=== PATIENT | male | born 1960 | race Caucasian/White ===

== ENCOUNTER 2020-08-07 17:59 | Inpatient (IN) | payer BC, OTHER, SELFPAY ==
[2020-08-07] VITALS (8 sets, daily range): BP systolic 112–130; BP diastolic 72–87; PULSE 76–98; RESP 18–33; TEMP 37.3; O2SAT 91–93; BMI 29.8
--- NOTE | 2020-08-07 18:32 | XRR_ITS ---
PROCEDURE INFORMATION: Exam: XR Chest Exam date and time: 08/07/2020 6:32 PM Age: 59 years old Clinical indication: Shortness of breath; Additional info: SOB, hypoxia, covid+ TECHNIQUE: Imaging protocol: XR of the chest. Views: 1 view. COMPARISON: No relevant prior studies available. FINDINGS: Lungs: Asymmetric patchy ground-glass opacities involving the left lower lobe. No consolidation on the right. Pleural spaces: Unremarkable. No pleural effusion. No pneumothorax. Heart/Mediastinum: Unremarkable. No cardiomegaly. Bones/joints: Unremarkable. XR/XR chest 1V portable [id number] IMPRESSION: Asymmetric left lower lobe patchy ground-glass opacities consistent with nonspecific pneumonia.
[2020-08-07 18:40] LABS: Basophils % 0.5 %; Hematocrit 44.1 % (42.0-52.0); Hemoglobin 14.9 g/dL (11.7-16.6); Lymphocytes # 0.9 10^3/uL (0.8-4.8); Lymphocytes % 22.1 %; Mean Corpuscular HGB Conc 33.8 g/dL (30.0-36.0); Mean Corpuscular Hemoglobin 30.8 pg (28.0-34.0); Mean Corpuscular Volume 91.3 fL (80-94); Mean Platelet Volume 9.2 fL (7.4-10.4); Monocytes # 0.3 10^3/uL (0.2-0.9); Monocytes % 7.5 %; Neutrophils # 2.79 10^3/uL (1.8-7.7); Neutrophils % 69.4 %; Nucleated Red Blood Cells % 0 %; Platelet Count 173 10^3/cmm (130-400); Red Blood Count 4.83 10^6/uL (4.1-5.3); Red Cell Distribution Width 12.5 % (12.1-15.1)
[2020-08-07 18:47] LABS: Fibrinogen 489 mg/dL (174-498)
[2020-08-07 18:49] LABS: D Dimer 0.96 ug/mIFEU (0-0.59)
[2020-08-07 18:53] LABS: Lactic Sepsis W/Reflex 1.1 mmol/L (0.5-2.2)
[2020-08-07 18:54] LABS: Alanine Aminotransferase 82 U/L (0-41); Albumin Level 3.6 g/dL (3.5-5.2); Alkaline Phosphatase 58 IU/L (40-130); Anion Gap 13.7 (5-19); Aspartate Amino Transferase 77 U/L (0-40); Blood Urea Nitrogen 10 mg/dL (6-20); Calcium 8.1 mg/dL (8.5-10.5); Carbon Dioxide 25 mmol/L (22-29); Chloride 100 mmol/L (98-107); Globulin 2.7 g/dL (1.3-4.6); Glomerular Filtration Rate 115.4 mL/min (90-130); Glucose 128 mg/dL (65-115); Osmolality Calculated 281 mOsm/kg (285-295); Potassium 3.7 mmol/L (3.5-5.1); Sodium 135 mmol/L (136-145); Total Bilirubin 0.2 mg/dL (0.15-1.2); Total Protein 6.3 g/dL (6.6-8.7)
[2020-08-07 18:57] LABS: ABG PCO2 32.1 mmHg (35-45); ABG PH Result 7.49 (7.35-7.45); Base Excess ABG 2.1 mmol/L (-2.0-2.0); Blood Gas Allen Test Pos; Blood Gas Operator Identificat ED; Blood Gas Sample Site Radial, right; Blood Gas Sample Type Arterial; HCO3 ABG 24.7 mmol/L (22-26); Oxygen Device NC; PO2 ABG 58.5 mmHg (80.0-100.0)
[2020-08-07 19:00] LABS: Procalcitonin 0.12 ng/mL (0-0.5)
[2020-08-07 19:12] LABS: Ferritin 1991 ng/mL (30-400)
--- NOTE | 2020-08-07 19:29 | P.HP_ITS ---
Providers/Chief Complaint Chief Complaint: COVID +; RESP DISTRESS History of Present Illness Huber Licona is a 59 year old male contracted COVID-19 about 9 days ago, his is suffering as well with COVID-19 pneumonia, presented today with chief complaint of worsening shortness of breath. Patient is stating that at home he has been noticing excessive bouts of nonproductive cough, shortness of breath and fever. Temperature at home 103F, which are associated with macular rash around his abdominal wall, he is denying blurry vision, headache, neck pain. His symptoms gradually got worse and today his O2 saturation was in low 80s hence EMS was called. He was elected to come to the hospital however finally agreed. On arrival in the ER normal hemodynamics he was saturating 89 to 90% requiring 3 to 4 L of nasal cannula oxygen supplementation, inflammatory markers are high however not septic. Procalcitonin unremarkable Started remdesivir and Decadron. Of note, patient is stating that he went untreated to [place] with his , he went to a restaurant in [place] and 1 week after his tested positive for COVID-19 pneumonia. He is not vaccinated Review of Systems Eyes: Denies: change in vision ENMT: Denies: throat pain Card: Denies: chest pain Resp: Reports: dyspnea and non-productive cough GI: Denies: abdominal pain : Denies: flank pain Musc: Denies: neck pain Skin/Breast: Reports: rash Neuro: Denies: headache(s) Psych: Denies: anxiety Endo: Denies: polyuria Luiz/Lymph: Denies: easy bruising All/Imm: Denies: urticaria Medications/Allergies Allergies Allergy/AdvReac Type Severity Reaction Status Date / Time No Known Allergies Allergy Verified 08/07/20 19:36 PFSH Acute PFSH: Medical History (Updated 08/07/20 @ 20:25 by Emy Long MD) No pertinent past medical history Surgical History (Updated 08/07/20 @ 20:25 by Emy Long MD) H/O inguinal hernia repair H/O umbilical hernia repair Family History (Updated 08/07/20 @ 20:25 by Emy Long MD) Denies family history of Clotting disorder Chronic kidney disease (CKD) Social History (Updated 08/07/20 @ 20:29 by Emy Long MD) Smoking and tobacco status: never smoked Alcohol intake: current Alcohol intake frequency: holidays/special occasions only Substance/Drug Use: never Household members: spouse Housing: House 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 Vitals/I&O/Wt Last Vital Signs Temp 99.1 F 08/07/20 18:09 Pulse 93 08/07/20 19:01 Resp 33 H 08/07/20 19:01 BP 122/72 08/07/20 19:01 Pulse Ox 91 08/07/20 19:01 Weight last 48 hrs Weight 99.79 kg Physical Exam Narrative: EXAM NARRATIVE: Young male Currently saturating well on 4 L nasal cannula No active distress however experiencing multiple bouts of cough Abdomen has macular rash lower extremity no edema gangrene ulcer no signs of gangrene Awake alert oriented x3 GCS 15 S1, S2 sinus rhythm no chest pain Bilateral breath sounds with rhonchi at the bases, patient coughs every time he takes a deep breath Appropriate mood and affect EOMI, PERRLA Nonfocal neurological exam Data : 08/07/20 18:21 08/07/20 18:21 A&P Assessment and plan (1) COVID-19 determined by clinical diagnostic criteria: Status: Acute (2) Acute respiratory failure with hypoxia: Status: Acute Additional A&P Information Acute hypoxic respite failure with COVID-19 pneumonia No signs of sepsis, procalcitonin unremarkable Start remdesivir and Decadron Ventolin, home O2 evaluation Currently requiring 4 L nasal cannula Has abdominal macular rash I will start him on Lovenox 30 mg twice daily Check inflammatory markers every 48 hour Full code Cardiac diet DVT prophylaxis Lovenox Attestations Medical Necessity Statement*: Anticipating stay in the hospital cross more than 2 midnights for treatment of COVID-19 pneumonia Time Spent in Patient Care: (>than 50% of time spent in counselling and/or direct pt care on unit) . 40mins Coding Level of Care Code Acute Cable Braider for Prabhag Fwd Diagnoses COVID-19 determined by clinical diagnostic criteria U07.1 Acute respiratory failure with hypoxia J96.01
[2020-08-07] MEDS: remdesivir 200 MG in sodium chloride 0.9% (100 ml) 100 ML 100 MG IV (19:39)
[2020-08-07] MEDS: albuterol 8 gm MDI 2 PUFF INHALATION (21:21)
[2020-08-07] MEDS: enoxaparin 30 mg/0.3 mL Syringe SUBCUT (21:28)
--- NOTE | 2020-08-07 23:46 | ED_ITS ---
HPI - COVID General: Chief Complaint: COVID symptoms Stated Complaint: COVID +; RESP DISTRESS Time Seen by Provider: 08/07/20 18:06 Source: patient Mode of arrival: EMS Limitations: no limitations Triage information: Has fever, cough or shortness of breath . Exposure to COVID + person last 14 days History of Present Illness: HPI Narrative: Patient is a 59-year-old male who symptoms started about 9 days ago. Is been coughing, has a fever and has been having some trouble breathing. He was tested for COVID-19 and he tested positive. He has been monitoring his oxygen saturation levels and he was advised to seek medical care when he drops below 90%. Today he noticed that his oxygen saturation was 77% on room air and so he called for an ambulance to bring him in. He is having worsening shortness of breath. complaint: known COVID positive Prior covid testing: yes, results known COVID 19 common symptoms: positive fever(s), chills, cough, non-productive cough, dyspnea, fatigue, body aches and loss of sense of smell and/or taste; negative headache(s), throat pain, nasal congestion, nausea, vomiting or diarrhea COVID 19 other sytmptoms: positive requiring oxygen and lethargy; negative chest pressure, chest pain, pleuritic pain, respiratory distress, cyanosis, confusion, new neurological complaints or other concerning symptoms Onset (ago): day(s) (9) Severity: severe Treatment prior to arrival: none COVID Results: No Data to Display Review of Systems General: Reports: 10 or more systems reviewed and unremarkable except in HPI and below Const: Reports: fever(s), chills, body aches and fatigue ENMT: Denies: throat pain or nasal congestion Card: Denies: chest pain Resp: Reports: dyspnea and non-productive cough GI: Denies: nausea, vomiting or diarrhea Neuro: Denies: headache(s) or confusion PFS ED PFSH: Medical History (Updated 08/08/20 @ 00:31 by Cem Marcos MD, [facility] – [place], [place]) No pertinent past medical history Surgical History (Updated 08/07/20 @ 20:25 by Emy Long MD) H/O inguinal hernia repair H/O umbilical hernia repair Family History (Updated 08/07/20 @ 20:25 by Emy Long MD) Denies family history of Clotting disorder Chronic kidney disease (CKD) Social History (Updated 08/07/20 @ 20:29 by Emy Long MD) Smoking and tobacco status: never smoked Alcohol intake: current Alcohol intake frequency: holidays/special occasions only Substance/Drug Use: never Household members: spouse Housing: House 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 Physical Exam Const: COMMON NORMALS: no acute distress, average body habitus, patient oriented x3, no limitations, healthy appearing, alert and well nourished HENMT: COMMON NORMALS: normocephalic, atraumatic and moist oral mucous membranes HEAD & SCALP: normocephalic and atraumatic Eye: COMMON NORMALS: Equal, round and reactive pupils present, EOMs intact bilaterally, conjunctivae normal and no scleral icterus CONJUNCTIVA: Yes conjunctivae normal PUPIL: Yes Equal, round and reactive pupils present Neck/C-Spine: COMMON NORMALS: no meningeal signs and no JVD Resp: COMMON NORMALS: normal respiratory effort, No retractions, No use of accessory muscles, clear to auscultation bilaterally and percussion normal AUSCULTATION: clear to auscultation bilaterally PERCUSSION: percussion normal Cardio: COMMON NORMALS: no JVD, regular rate, regular rhythm, S1 normal heart sound present, S2 normal heart sound present, No gallops present (Cardio), No clicks present (Cardio), No murmurs present (Cardio), No rub (Cardio) and Peripheral pulses 2+ throughout RATE: regular rate RHYTHM: regular rhythm HEART SOUNDS: S1 normal heart sound present and S2 normal heart sound present PERIPHERAL PULSES: Peripheral pulses 2+ throughout GI: COMMON NORMALS: Normal to inspection, nondistended, normoactive bowel sounds present, Soft to palpation, non-tender, No hepatosplenomegaly present, no masses and no bruits PALPATION: Yes Soft to palpation and Yes No hepatosplenomegaly present Extremity: COMMON NORMALS: normal to inspection, full ROM, capillary refill normal, no calf tenderness and no pedal edema Neuro: COMMON NORMALS: patient oriented x3 SENSORIUM/ORIENTATION: Yes alert MENINGEAL SIGNS: Yes no meningeal signs Skin: COMMON NORMALS: no wounds, turgor normal, no jaundice, no petechiae and no mottling GENERAL SKIN EXAM: turgor normal RASHES: rashes noted rash Rash type: Yes maculopapular Rash location: multiple maculopapular rashes, purple in color on his abdominal skin Course Consultations: Consultation #1: Discussed the patient with Dr. Long, hospitalist and he kindly accepted the patient to his service Time: 19:29 Vital Signs: Vital signs: Vital Signs Temperature 99.2 F 08/07/20 20:28 Pulse Rate 79 08/07/20 21:24 Respiratory Rate 24 H 08/07/20 21:22 Blood Pressure 127/81 08/07/20 20:28 Pulse Oximetry 92 08/07/20 21:22 MDM - COVID MDM Narrative: Medical decision making narrative: 59-year-old male who has been feeling unwell for about 9 days and who tested positive for COVID-19. He has been gradually getting worsening shortness of breath and he was significantly hypoxic today with oxygen saturation 77% on room air. In the emergency department he required oxygen supplementation and evaluation is otherwise consistent with COVID-19. He either admitted to the hospital for further evaluation and management. Medical Records: Attestation: I reviewed the patient's medical records. Lab Data: Attestation: I reviewed the patient's lab results. Labs: Lab Results 08/07/20 08/07/20 08/07/20 Range/Units 18:21 18:21 18:21 WBC 4.0 (4.0-10.0) 10^3/ uL RBC 4.83 (4.1-5.3) 10^6/u L Hgb 14.9 (11.7-16.6) g/dL Hct 44.1 (42.0-52.0) % MCV 91.3 (80-94) fL MCH 30.8 (28.0-34.0) pg MCHC 33.8 (30.0-36.0) g/dL RDW 12.5 (12.1-15.1) % Plt Count 173 (130-400) 10^3/c mm MPV 9.2 (7.4-10.4) fL Neut % (Auto) 69.4 % Lymph % (Auto) 22.1 % [place] % (Auto) 7.5 % Eos % (Auto) 0.0 % Baso % (Auto) 0.5 % Neut # (Auto) 2.79 (1.8-7.7) 10^3/u L Lymph # (Auto) 0.9 (0.8-4.8) 10^3/u L [place] # (Auto) 0.3 (0.2-0.9) 10^3/u L Eos # (Auto) 0.0 (0.0-0.8) 10^3/u L Baso # (Auto) 0.0 (0.0-0.1) 10^3/u L Nucleated RBC % (a uto) 0 % Nucleated RBCs # 0.0 /100WBC Fibrinogen 489 (174-498) mg/dL D-Dimer 0.96 H (0-0.59) ug/mIFE U Specimen Type Sample Site ABG pH (7.35-7.45) ABG pCO2 (35-45) mmHg ABG pO2 (80.0-100.0) mmH g ABG HCO3 (22-26) mmol/L ABG Base Excess (-2.0-2.0) mmol/ L Paul Test Hematocrit (42-52) % O2 Delivery Device O2 Liters/Min % FiO2 % Logistics Research Engineer ID Sodium 135 L (136-145) mmol/L Potassium 3.7 (3.5-5.1) mmol/L Chloride 100 (98-107) mmol/L Carbon Dioxide 25 (22-29) mmol/L Anion Gap 13.7 (5-19) BUN 10 (6-20) mg/dL Creatinine 0.7 (0.7-1.2) mg/dL GFR Calculation 115.4 (90-130) mL/min Glucose 128 H (65-115) mg/dL Calculated Osmolal ity 281 L (285-295) mOsm/k g Lactic Acid (0.5-2.2) mmol/L Calcium 8.1 L (8.5-10.5) mg/dL Ferritin 1991 H (30-400) ng/mL Total Bilirubin 0.2 (0.15-1.2) mg/dL AST 77 H (0-40) U/L ALT 82 H (0-41) U/L Alkaline Phosphata se 58 (40-130) IU/L C-Reactive Protein 70.0 H (0.0-4.9) mg/L Total Protein 6.3 L (6.6-8.7) g/dL Albumin 3.6 (3.5-5.2) g/dL Globulin 2.7 (1.3-4.6) g/dL Procalcitonin 0.12 (0-0.5) ng/mL 08/07/20 08/07/20 Range/Units 18:21 18:47 WBC (4.0-10.0) 10^3/ uL RBC (4.1-5.3) 10^6/u L Hgb (11.7-16.6) g/dL Hct (42.0-52.0) % MCV (80-94) fL MCH (28.0-34.0) pg MCHC (30.0-36.0) g/dL RDW (12.1-15.1) % Plt Count (130-400) 10^3/c mm MPV (7.4-10.4) fL Neut % (Auto) % Lymph % (Auto) % [place] % (Auto) % Eos % (Auto) % Baso % (Auto) % Neut # (Auto) (1.8-7.7) 10^3/u L Lymph # (Auto) (0.8-4.8) 10^3/u L [place] # (Auto) (0.2-0.9) 10^3/u L Eos # (Auto) (0.0-0.8) 10^3/u L Baso # (Auto) (0.0-0.1) 10^3/u L Nucleated RBC % (a uto) % Nucleated RBCs # /100WBC Fibrinogen (174-498) mg/dL D-Dimer (0-0.59) ug/mIFE U Specimen Type Arterial Sample Site Radial, right ABG pH 7.49 H (7.35-7.45) ABG pCO2 32.1 L (35-45) mmHg ABG pO2 58.5 L (80.0-100.0) mmH g ABG HCO3 24.7 (22-26) mmol/L ABG Base Excess 2.1 H (-2.0-2.0) mmol/ L Paul Test Pos Hematocrit 47.0 (42-52) % O2 Delivery Device Nc O2 Liters/Min 2.0 % FiO2 28.0 % Logistics Research Engineer ID Ed Sodium (136-145) mmol/L Potassium (3.5-5.1) mmol/L Chloride (98-107) mmol/L Carbon Dioxide (22-29) mmol/L Anion Gap (5-19) BUN (6-20) mg/dL Creatinine (0.7-1.2) mg/dL GFR Calculation (90-130) mL/min Glucose (65-115) mg/dL Calculated Osmolal ity (285-295) mOsm/k g Lactic Acid 1.1 (0.5-2.2) mmol/L Calcium (8.5-10.5) mg/dL Ferritin (30-400) ng/mL Total Bilirubin (0.15-1.2) mg/dL AST (0-40) U/L ALT (0-41) U/L Alkaline Phosphata se (40-130) IU/L C-Reactive Protein (0.0-4.9) mg/L Total Protein (6.6-8.7) g/dL Albumin (3.5-5.2) g/dL Globulin (1.3-4.6) g/dL Procalcitonin (0-0.5) ng/mL Imaging Data: CXR: Attestation: I personally reviewed and interpreted this imaging study as follows: My impression: Bilateral patchy infiltrates. EKG Data: EKG 1: Attestation: I personally reviewed and interpreted this EKG as follows: EKG interpretation date: 08/07/20 EKG interpretation time: 19:17 Prior EKG tracings: not available for review Interpretation: Sinus rhythm. Heart rate 90 bpm. Normal axis. No ST changes. COVID Results: No Data to Display Monoclonal Antibody Treatments Inclusion/Exclusion Criteria weight >/= 40 kg and + direct Sars-Cov-2 test less than 7-10 days ago age not >/= 65, BMI not >/= 35, does not have diabetes, does not have CKD, not receiving immunosuppressive therapy, does not have immunosuppressive disease, not >/= 55 with hypertension, not >/= 55 with diabetes and not >/= 55 with COPD/lung disease needs hospitalization (DO NOT GIVE) and needs oxygen (DO NOT GIVE) Plan for treatment Does not meet criteria (DO NOT GIVE) Discharge Plan Discharge Patient Disposition: Admitted As Inpatient Admit Provider: Emy Long Clinical Impression: Acute respiratory failure with hypoxia, Pneumonia due to 2019 novel coronavirus Condition: Stable Coding Level of Care Code ED Line Puller for Allison Huff
[2020-08-08] VITALS (13 sets, daily range): BP systolic 113–135; BP diastolic 75–84; PULSE 75–87; RESP 12–18; TEMP 36.9–38.1; O2SAT 86–91
[2020-08-08] MEDS: acetaminophen 500 mg Tablet PO ×2 (04:25→15:21)
[2020-08-08 06:12] LABS: Basophils % 0.3 %; Hematocrit 44.4 % (42.0-52.0); Hemoglobin 14.6 g/dL (11.7-16.6); Lymphocytes # 1.1 10^3/uL (0.8-4.8); Lymphocytes % 28.4 %; Mean Corpuscular HGB Conc 32.9 g/dL (30.0-36.0); Mean Corpuscular Hemoglobin 30.5 pg (28.0-34.0); Mean Corpuscular Volume 92.7 fL (80-94); Mean Platelet Volume 9.5 fL (7.4-10.4); Monocytes # 0.3 10^3/uL (0.2-0.9); Monocytes % 6.7 %; Neutrophils # 2.49 10^3/uL (1.8-7.7); Neutrophils % 64.1 %; Nucleated Red Blood Cells % 0 %; Platelet Count 188 10^3/cmm (130-400); Red Blood Count 4.79 10^6/uL (4.1-5.3); Red Cell Distribution Width 12.6 % (12.1-15.1); White Blood Count 3.9 10^3/uL (4.0-10.0)
[2020-08-08 06:31] LABS: D Dimer 0.73 ug/mIFEU (0-0.59)
[2020-08-08 06:47] LABS: Alanine Aminotransferase 96 U/L (0-41); Albumin Level 3.4 g/dL (3.5-5.2); Alkaline Phosphatase 60 IU/L (40-130); Anion Gap 15.2 (5-19); Aspartate Amino Transferase 90 U/L (0-40); Blood Urea Nitrogen 11 mg/dL (6-20); C Reactive Protein 88.9 mg/L (0.0-4.9); Calcium 8.3 mg/dL (8.5-10.5); Carbon Dioxide 26 mmol/L (22-29); Chloride 99 mmol/L (98-107); Globulin 2.9 g/dL (1.3-4.6); Glomerular Filtration Rate 115.4 mL/min (90-130); Glucose 106 mg/dL (65-115); Lactate Dehydrogenase 375 U/L (135-225); Osmolality Calculated 282 mOsm/kg (285-295); Potassium 4.2 mmol/L (3.5-5.1); Sodium 136 mmol/L (136-145); Total Bilirubin 0.3 mg/dL (0.15-1.2); Total Protein 6.3 g/dL (6.6-8.7)
[2020-08-08 06:54] LABS: Creatine Phosphokinase 338 U/L (39-308)
--- NOTE | 2020-08-08 07:10 | PC.NURSE ---
notified Dr Long that patient's CK is 338.
[2020-08-08] MEDS: dexamethasone 4 mg Tablet 6 MG PO (08:34)
[2020-08-08] MEDS: enoxaparin 30 mg/0.3 mL Syringe SUBCUT ×2 (08:34→21:52)
[2020-08-08] MEDS: azithromycin 500 MG in sodium chloride 0.9% 250 ML 250 MG IV (09:36)
[2020-08-08] MEDS: cefTRIAXone 1,000 MG in sodium chloride 0.9% (plus) 50 ML 100 MG IV (10:50)
[2020-08-08] MEDS: FUROsemide 10 mg/mL SDV 2mL 20 MG IVP (15:12)
[2020-08-08] MEDS: albuterol 8 gm MDI 2 PUFF INHALATION (17:00)
[2020-08-08] MEDS: remdesivir 100 MG in sodium chloride 0.9% (100 ml) 100 ML IV (17:16)
--- NOTE | 2020-08-08 18:27 | P.PN_ITS ---
Subjective Subjective: Interval history: Patient was seen and examined this morning complaining of fever and non productive cough,fatigue. At baseline he is very active person. Vitals/I&O/Wt Last Vital Signs Temp 99.2 F 08/08/20 16:43 Pulse 87 08/08/20 17:05 Resp 17 08/08/20 17:00 BP 133/81 08/08/20 16:00 Pulse Ox 90 08/08/20 17:00 08/08/20 08/08/20 08/08/20 06:59 14:59 22:59 Intake Total 900 / 900 240 / 1140 Balance 900 / 900 240 / 1140 Weight last 48 hrs Weight 99.79 kg Physical Exam Const: COMMON NORMALS: patient oriented x3 HENMT: COMMON NORMALS: normocephalic and atraumatic HEAD & SCALP: normocephalic and atraumatic Resp: OTHER: B/L Basal Crackles present in both lungs armendariz Cardio: COMMON NORMALS: regular rate, regular rhythm, S1 normal heart sound present, S2 normal heart sound present, No gallops present (Cardio), No murmurs present (Cardio) and Peripheral pulses 2+ throughout RATE: regular rate RHYTHM: regular rhythm HEART SOUNDS: S1 normal heart sound present and S2 normal heart sound present PERIPHERAL PULSES: Peripheral pulses 2+ throughout GI: COMMON NORMALS: Normal to inspection, nondistended, normoactive bowel sounds present, Soft to palpation, non-tender, No hepatosplenomegaly present and no masses AUSCULTATION: Yes normoactive bowel sounds PALPATION: Yes Soft to palpation and Yes No hepatosplenomegaly present RECTAL EXAM: Yes deferred OTHER: macular rash,no itching Extremity: COMMON NORMALS: no clubbing, cyanosis or edema and no pedal edema Neuro: COMMON NORMALS: patient oriented x3 Data : 08/08/20 05:10 08/08/20 05:10 A&P Assessment and plan (1) Acute respiratory failure with hypoxia: Ac Respiratory failure with hypoxia secondary to Covid pneumonia: Xray chest : Asymmetric left lower lobe patchy ground-glass opacities Currently on COVID -19 protocol (remdesivir 5-day course, dexamethasone 10-day course) Trend inflammatory markers ( ESR, CRP, D dimer, ferritin ) Zinc 50 mg p.o. daily Ascorbic acid 500 mg q12 h daily Ceftriaxone 1 gm q24 h daily Azithromycon 500 mg I.V Daily Duo nebs Budesonide 0.5 mg Inhalation BID Consider Tocilizumab if the oxygen requirement continues going up. Lasix as needed (to maintain fluid neutral state) Lovenox 30 mg sc q12 h daily Status: Acute (2) COVID-19 determined by clinical diagnostic criteria: Status: Acute Attestations Medical Necessity Statement*: Patient needs to be in hospital for the [facility] of R/F 2/2 COVID PNA. Coding Level of Care Code Acute I O Psychologist for Allison Huff Diagnoses Acute respiratory failure with hypoxia J96.01 COVID-19 determined by clinical diagnostic criteria U07.1
[2020-08-09] VITALS (93 sets, daily range): BP systolic 112–131; BP diastolic 76–88; PULSE 63–91; RESP 12–34; TEMP 36.7–37.1; O2SAT 84–94
[2020-08-09] MEDS: guaiFENesin-dextromethorphan UDC 10 mL PO (04:31)
[2020-08-09 06:27] LABS: Basophils % 0.2 %; Hematocrit 44.9 % (42.0-52.0); Lymphocytes # 1.3 10^3/uL (0.8-4.8); Lymphocytes % 25.8 %; Mean Corpuscular HGB Conc 33.4 g/dL (30.0-36.0); Mean Corpuscular Hemoglobin 30.4 pg (28.0-34.0); Mean Corpuscular Volume 91.1 fL (80-94); Mean Platelet Volume 9.6 fL (7.4-10.4); Monocytes # 0.5 10^3/uL (0.2-0.9); Monocytes % 9.5 %; Neutrophils # 3.18 10^3/uL (1.8-7.7); Neutrophils % 63.9 %; Nucleated Red Blood Cells % 0 %; Platelet Count 241 10^3/cmm (130-400); Red Blood Count 4.93 10^6/uL (4.1-5.3); Red Cell Distribution Width 12.6 % (12.1-15.1)
[2020-08-09 06:41] LABS: D Dimer 0.61 ug/mIFEU (0-0.59)
[2020-08-09 06:45] LABS: Anion Gap 16.8 (5-19); Blood Urea Nitrogen 14 mg/dL (6-20); C Reactive Protein 69.4 mg/L (0.0-4.9); Calcium 8.6 mg/dL (8.5-10.5); Carbon Dioxide 25 mmol/L (22-29); Chloride 99 mmol/L (98-107); Glomerular Filtration Rate 115.4 mL/min (90-130); Glucose 121 mg/dL (65-115); Osmolality Calculated 286 mOsm/kg (285-295); Potassium 3.8 mmol/L (3.5-5.1); Sodium 137 mmol/L (136-145)
[2020-08-09 06:52] LABS: Procalcitonin 0.31 ng/mL (0-0.5)
[2020-08-09 07:23] LABS: Ferritin 2535 ng/mL (30-400)
[2020-08-09 07:31] LABS: Erythrocyte Sedimentation Rate 31 mm/hr (0-10)
--- NOTE | 2020-08-09 08:19 | PC.NURSE ---
patient complains of nausea and requesting nausea medication. technical publications writer notified Dr Parr. Dr Parr placed order.
[2020-08-09] MEDS: dexamethasone 4 mg Tablet 6 MG PO (08:22)
[2020-08-09] MEDS: ascorbic acid 500 mg Tablet PO ×2 (08:23→17:15)
[2020-08-09] MEDS: enoxaparin 30 mg/0.3 mL Syringe SUBCUT (08:23)
[2020-08-09] MEDS: cefTRIAXone 1,000 MG in sodium chloride 0.9% (plus) 50 ML 100 MG IV (08:23)
[2020-08-09] MEDS: zinc gluconate 50 mg Tablet PO (08:23)
[2020-08-09] MEDS: azithromycin 500 MG in sodium chloride 0.9% 250 ML 250 MG IV (09:04)
--- NOTE | 2020-08-09 09:58 | CT_ITS ---
WS: [id number] CTA OF THE CHEST WITH PULMONARY EMBOLISM PROTOCOL TECHNIQUE: High-resolution contrast enhanced CTA of the chest with coronal and sagittal reformatted i mages with pulmonary embolism protocol. MIP images are also reviewed. CLINICAL INFORMATION: sob, hypoxia COMPARISON: None. DLP: 605.[address] scans at [facility] use at least one of these dose optimization techniques: automat ed exposure control; mA and/or kV adjustment per patient size (includes targeted exams where dose is matched to clinical indication); or iterative reconstruction. FINDINGS: Hazy bilateral groundglass infiltrates worse in the perihilar regions and upper lobes bilaterally. Pa rtial airspace consolidation left lower lobe. Findings suspicious for COVID19 pneumonia. Proximal main pulmonary arteries are normal. Normal segmental and subsegmental pulmonary arteries. No filling defects to indicate pulmonary embolus. No mediastinal or hilar lymphadenopathy. No axillary lymphadenopathy. Adrenal glands are normal. Fatt y atrophy of the pancreas. Small esophageal hiatal hernia. Splenic granulomas. Schmorl's nodes in the mid and lower thoracic spine. CT/CT angio chest PE protcl [id number] IMPRESSION: 1. Proximal main pulmonary arteries are normal. No suspicious filling defects to indicate pulmonary embolus. 2. Hazy bilateral groundglass infiltrates compatible with COVID 19 pneumonia. 3. Partial airspace consolidation left lower lobe. 4. Small esophageal hiatal hernia.
--- NOTE | 2020-08-09 09:58 | USCV_ITS ---
Huber Licona Age: 59 Gender: M : 1960 Exam Date: 08/09/2020 16:35 Ordering Phys: Kevin Parr MD Technologist: Lily Julien Exam Location: [facility] Indication: COVID AND SOB BP: 121 / 85 HR: 71 Rhythm: Sinus Technical Quality: Technically difficult study MEASUREMENTS (Male / Female) Normal Values 2D ECHO LV Diastolic Diameter PLAX 5.0 cm 4.2 - 5.9 / 3.9 - 5.3 cm LV Systolic Diameter PLAX 3.4 cm LV Chamber Size 3.8 cm IVS Diastolic Thickness 1.3 cm 0.6 - 1.0 / 0.6 - 0.9 cm IVS Systolic Thickness 1.7 cm LVPW Diastolic Thickness 1.2 cm 0.6 - 1.0 / 0.6 - 0.9 cm LVPW Systolic Thickness 1.5 cm RV Chamber Size 4.1 cm LVOT Diameter 2.1 cm LV Ejection Fraction 2D Teich 60.9 % LV Ejection Fraction MOD 2C 81.0 % LV Ejection Fraction 2C AL 81.4 % LA Diameter 4.7 cm LA Width 2.3 cm LA Height 4.2 cm RA Width 3.1 cm RA Height 3.4 cm Aorta at Sinotubular Diameter 3.4 cm M-MODE LV Diastolic Diameter MM 4.5 cm 4.2 - 5.9 / 3.9 - 5.3 cm LV Systolic Diameter MM 2.9 cm LV Ejection Fraction MM Teich 67.0 % IVS Diastolic Thickness MM 1.2 cm 0.6 - 1.0 / 0.6 - 0.9 cm IVS Systolic Thickness MM 1.6 cm LVPW Diastolic Thickness MM 1.4 cm 0.6 - 1.0 / 0.6 - 0.9 cm LVPW Systolic Thickness MM 1.7 cm Aortic Annulus Diameter 4.5 cm LA Ao Ratio MM 1.1 MV E Point Septal Separation 0.7 cm DOPPLER AV Peak Velocity 118.0 cm/s LVOT Peak Velocity 100.0 cm/s AV Area Cont Eq vti 3.4 cm squared AV Area Cont Eq pk 2.8 cm squared MV Area PHT 5.0 cm squared Mitral E to A Ratio 1.1 MV E' Velocity 33.5 cm/s Mitral E to MV E' Ratio 7.1 Mitral E to LV E' Lateral Ratio 7.4 Mitral E to LV E' Septal Ratio 6.7 TR Peak Velocity 154.4 cm/s TR Peak Gradient 9.5 mmHg TR Mean Velocity 101.8 cm/s TR Mean Gradient 5.4 mmHg TR Velocity Time Integral 35.9 cm TV Peak E Velocity 72.0 cm/s Right Atrial Pressure 8.0 mmHg Pulmonary Artery Systolic Pressu 17.5 mmHg PV Peak Velocity 87.0 cm/s RV Acceleration Time 0.2 s RV Ejection Time 0.3 s RV AcT/ET 0.5 FINDINGS Left Ventricle Normal left ventricular size and systolic function, EF 66 %. No regional wall motion abnormalities. Right Ventricle The right ventricle is normal in size and function. Right Atrium The right atrium is normal in size. Left Atrium The left atrium is normal in size. Mitral Valve No gross abnormalities noted Aortic Valve No gross abnormalities noted Tricuspid Valve Trace tricuspid valve regurgitation. Pulmonic Valve No gross abnormalities noted Pericardium Normal pericardium without effusion. Aorta Normal ascending aorta dimension. CONCLUSIONS Normal left ventricular size and systolic function, EF 66 %. No regional wall motion abnormalities. No significant valvular abnormalities. Normal cardiac chamber sizes. Trace tricuspid valve regurgitation. Estimated pulmonary artery peak systolic pressure was within normal limits. There is no pericardial effusion. There are no intracardiac masses. Dr Concepción Lindsey MD FACC (Electronically Signed) Final Date: 09 August 2020 20:58 S
--- NOTE | 2020-08-09 10:10 | PC.NURSE ---
Rcvd verbal order from Dr Parr for BNP and 40mg IVP Lasix once. magnetic tape typewriter operator put orders in
[2020-08-09] MEDS: enoxaparin 80 mg/0.8 mL Syringe 70 MG SUBCUT (10:35)
[2020-08-09] MEDS: FUROsemide 10 mg/mL SDV 4mL 40 MG IVP (10:35)
[2020-08-09] MEDS: cholecalciferol (vitamin D3) 1,000 unit Tablet 1000 UNIT PO (10:35)
[2020-08-09 10:48] LABS: NT Pro B Type Natriuretic Pept 17 pg/mL (0-125)
--- NOTE | 2020-08-09 12:45 | PC.NURSE ---
Called report to [place] in ICU.
--- NOTE | 2020-08-09 13:06 | PM.PN ---
Subjective Subjective: Interval history: Early this morning, patient was getting up out of bed, when he felt short of breath and lightheaded, he had an episode of presyncope, but never passed out, never lost consciousness, respiratory therapy advanced his oxygen requirements to high heated high flow currently on 40 L, 60% FiO2, when I examined patient, he tells me that he is short of breath with minimal exertion such as getting up out of bed, when he got up out of bed he felt lightheaded and dizzy and short of breath. 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, Vitals/I&O/Wt Last Vital Signs Temp 98.0 F 08/09/20 11:19 Pulse 81 08/09/20 11:35 Resp 22 H 08/09/20 11:35 BP 112/76 08/09/20 11:19 Pulse Ox 92 08/09/20 11:35 08/08/20 08/09/20 08/09/20 22:59 06:59 14:59 Intake Total 340 / 1240 540 / 540 Output Total 1000 / 1000 Balance 340 / 1240 -460 / -460 Weight last 48 hrs Weight 99.79 kg Physical Exam Const: COMMON NORMALS: no acute distress ORIENTATION/CONSCIOUSNESS: Yes awake, Yes oriented to person, Yes oriented to place and Yes oriented to time Resp: COMMON NORMALS: normal respiratory effort EFFORT & INSPECTION: Yes tachypneic, Yes retractions and Yes paradoxical thoraco-abdominal movements AUSCULTATION: diminished lung sounds (In all lung armendariz) Cardio: COMMON NORMALS: regular rate, regular rhythm, S1 normal heart sound present and S2 normal heart sound present RATE: regular rate RHYTHM: regular rhythm HEART SOUNDS: S1 normal heart sound present and S2 normal heart sound present GI: COMMON NORMALS: Normal to inspection, nondistended, normoactive bowel sounds present, Soft to palpation, non-tender and No hepatosplenomegaly present PALPATION: Yes Soft to palpation and Yes No hepatosplenomegaly present Extremity: COMMON NORMALS: no pedal edema Neuro: SENSORIUM/ORIENTATION: Yes oriented to person, Yes oriented to place and Yes oriented to time Data : 08/09/20 04:46 08/09/20 04:46 A&P Assessment and plan (1) Acute respiratory failure with hypoxia: Ac Respiratory failure with hypoxia secondary to Covid pneumonia: Given worsening respiratory status, mild respiratory distress this morning, high oxygen requirements this morning, will transfer down to ICU Xray chest : Asymmetric left lower lobe patchy ground-glass opacities Currently on COVID -19 protocol (remdesivir 5-day course, dexamethasone 10-day course) Trend inflammatory markers ( ESR, CRP, D dimer, ferritin ) Zinc 50 mg p.o. daily Ascorbic acid 500 mg q12 h daily vitamin D Ceftriaxone 1 gm q24 h daily Azithromycon 500 mg I.V Daily Albuterol, Advair Budesonide 0.5 mg Inhalation BID Start Tocilizumab pulmonary has been consulted Incentive spirometer flutter valve Lasix as needed (to maintain fluid neutral state) Switch to therapeutic Lovenox CT angiogram of the chest ordered to evaluate for pulmonary emboli Cardiac echocardiogram ordered Full code Lovenox for DVT prophylaxis Status: Acute (2) COVID-19 determined by clinical diagnostic criteria: Status: Acute (3) Rash: Nonpruritic, macular rash on abdomen, nonblanching, continue to monitor No known penicillin allergy No lip or tongue swelling Status: Acute Additional A&P Information Full code Cardiac diet DVT prophylaxis Lovenox Attestations Medical Necessity Statement*: Patient requires hospitalization, transfer down to the ICU, for acute respiratory failure with hypoxia due to worsening respiratory status secondary to COVID-19 pneumonia, possible secondary bacterial infection Coding Level of Care Code Acute Supervisor Fabrication for Allison Huff Diagnoses Acute respiratory failure with hypoxia J96.01 COVID-19 determined by clinical diagnostic criteria U07.1 Rash R21
--- NOTE | 2020-08-09 13:14 | PC.NURSE ---
patient transferred to ICU 6. Patient's family notified. [phone].
[2020-08-09] MEDS: iohexol 350 mg/mL 100 mL Btl IV (14:57)
[2020-08-09] MEDS: remdesivir 100 MG in sodium chloride 0.9% (100 ml) 100 ML IV (17:17)
[2020-08-09] MEDS: enoxaparin 100 mg/mL Syringe SUBCUT (22:06)
[2020-08-09] MEDS: LORazepam 2 mg/mL INJ 1 mL 0.5 MG IVP (22:06)
[2020-08-10] VITALS (236 sets, daily range): BP systolic 96–143; BP diastolic 60–103; PULSE 49–87; RESP 7–30; TEMP 36.6–37.1; O2SAT 79–96
[2020-08-10 04:02] LABS: Basophils % 0.2 %; Hematocrit 43.5 % (42.0-52.0); Hemoglobin 14.5 g/dL (11.7-16.6); Lymphocytes # 1.2 10^3/uL (0.8-4.8); Lymphocytes % 27.8 %; Mean Corpuscular HGB Conc 33.3 g/dL (30.0-36.0); Mean Corpuscular Hemoglobin 30.5 pg (28.0-34.0); Mean Corpuscular Volume 91.4 fL (80-94); Mean Platelet Volume 9.4 fL (7.4-10.4); Monocytes # 0.5 10^3/uL (0.2-0.9); Monocytes % 10.5 %; Neutrophils # 2.72 10^3/uL (1.8-7.7); Neutrophils % 61.1 %; Nucleated Red Blood Cells % 0 %; Platelet Count 286 10^3/cmm (130-400); Red Blood Count 4.76 10^6/uL (4.1-5.3); Red Cell Distribution Width 12.4 % (12.1-15.1); White Blood Count 4.5 10^3/uL (4.0-10.0)
[2020-08-10 04:20] LABS: Alanine Aminotransferase 86 U/L (0-41); Albumin Level 3.4 g/dL (3.5-5.2); Alkaline Phosphatase 64 IU/L (40-130); Anion Gap 16.7 (5-19); Aspartate Amino Transferase 74 U/L (0-40); Blood Urea Nitrogen 19 mg/dL (6-20); C Reactive Protein 27.2 mg/L (0.0-4.9); Calcium 8.1 mg/dL (8.5-10.5); Carbon Dioxide 25 mmol/L (22-29); Chloride 101 mmol/L (98-107); Globulin 2.9 g/dL (1.3-4.6); Glomerular Filtration Rate 115.4 mL/min (90-130); Glucose 123 mg/dL (65-115); Magnesium 2.3 mg/dL (1.7-2.3); Osmolality Calculated 292 mOsm/kg (285-295); Phosphorus 3.9 mg/dL (2.5-4.5); Potassium 3.7 mmol/L (3.5-5.1); Sodium 139 mmol/L (136-145); Total Bilirubin 0.5 mg/dL (0.15-1.2); Total Protein 6.3 g/dL (6.6-8.7)
[2020-08-10 04:21] LABS: INR 1.01 (0.8-1.2)
[2020-08-10 04:22] LABS: Lactate (Lactic Acid level) 1.1 mmol/L (0.5-2.2); NT Pro B Type Natriuretic Pept 10 pg/mL (0-125); Procalcitonin 0.16 ng/mL (0-0.5)
[2020-08-10 04:38] LABS: D Dimer 0.46 ug/mIFEU (0-0.59)
[2020-08-10 04:41] LABS: Creatine Phosphokinase 367 U/L (39-308)
[2020-08-10 04:49] LABS: Ferritin 2692 ng/mL (30-400)
[2020-08-10 05:11] LABS: ABG PCO2 33.5 mmHg (35-45); ABG PH Result 7.52 (7.35-7.45); Base Excess ABG 4.7 mmol/L (-2.0-2.0); HCO3 ABG 27.3 mmol/L (22-26); PO2 ABG 51.4 mmHg (80.0-100.0)
[2020-08-10 05:12] LABS: Arterial Blood Gas Hematocrit 47.5 % (42-52)
[2020-08-10 05:15] LABS: Erythrocyte Sedimentation Rate 30 mm/hr (0-10)
--- NOTE | 2020-08-10 06:00 | ECG_ITS ---
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 Measurements Intervals [place] Rate: 65 P: 50 CT: 194 QRS: 50 QRSD: 105 T: 35 QT: 442 QTc: 462 Interpretive Statements SINUS RHYTHM No previous ECG available for comparison Electronically Signed On 08-11-2020 0:50:05 CDT by Concepción Lindsey M.D. [email or web address]
--- NOTE | 2020-08-10 07:00 | XRR_ITS ---
PROCEDURE INFORMATION: Exam: XR Chest Exam date and time: 08/10/2020 7:00 AM Age: 59 years old Clinical indication: Dyspnea; Additional info: SOB TECHNIQUE: Imaging protocol: XR of the chest. Views: 1 view. COMPARISON: CR XR chest 1V portable [id number] 08/07/2020 6:35 PM FINDINGS: Lungs: Bilateral ground-glass lung infiltrates is seen more marked on the left side. Pleural spaces: Unremarkable. No pleural effusion. No pneumothorax. Heart/Mediastinum: Unremarkable. No cardiomegaly. Bones/joints: Unremarkable. XR/XR chest 1V portable [id number] IMPRESSION: No significant change is seen.
[2020-08-10] MEDS: cholecalciferol (vitamin D3) 1,000 unit Tablet 1000 UNIT PO (08:02)
[2020-08-10] MEDS: zinc gluconate 50 mg Tablet PO (08:02)
[2020-08-10] MEDS: ascorbic acid 500 mg Tablet PO ×2 (08:02→18:06)
[2020-08-10] MEDS: dexmedetomidine 400 MCG in sodium chloride 0.9% (100 ml) 100 ML IV (08:03)
[2020-08-10] MEDS: dexamethasone 4 mg/mL INJ 6 MG IVP (08:03)
[2020-08-10] MEDS: azithromycin 500 MG in sodium chloride 0.9% 250 ML 250 MG IV (08:03)
[2020-08-10] MEDS: cefTRIAXone 1,000 MG in sodium chloride 0.9% (plus) 50 ML 100 MG IV (08:03)
--- NOTE | 2020-08-10 09:28 | PC.CHAP ---
Pastoral Care Encounter/Spiritual Assessment Type of Contact [] Declined court messenger visit [] Patient/Family/Request visit [] Outpatient visit [] Follow-up visit [] Physician referral [] Code/Alert [x] Routine visit [] Staff referral [] Actively dying [] Patient sleeping [] Family support [] [] Out of room [] Palliative care [] [] Receiving care in room [] Pre-surgical visit [] Trauma [] Long length of stay [x] ICU visit [] Other: Relational/Emotional Strength [] Patient feels connected with others/family/visitors/staff [] Distress [] Loneliness/isolation [] Abandonment Spirituality of Patient [x] Person of [place] [] Attends Samaritan of their [place] [] Believes in Prayer [] Reads Bible or Anabaptism materials [] There are Spiritual issues to be addressed Head Turbine Operator Interventions [x] Prayer [x] Active listening [x] Non-anxious presence [x] Spiritual/emotional support [] Crisis/trauma care [] Spiritual counseling [] Bereavement support [] Provided bereavement packet [] Provided Bible/devotional materials [] Provided toy/stuffed animal, coloring book to patient or family member [] Provided Communion [] Anointing/[place] [] Salvation [x] Completed spiritual assessment [] Other: Impact on Illness or Injury [] Angry [] Fearful [] Anxious [] Often cries [] Exhaustion [] Unable to work [] Unable to attend scientologist [] Unable to walk/stand [] Unable to read [] Unable to drive [] Unable to eat/drink [] Unable to sleep [] Unable to be with family [] Patient intubated [] Other: Summary patient setting up eating breakfast.. stated he was OK Time spent with patient 5 min
[2020-08-10 13:54] LABS: Blood Gas Allen Test Pos; Blood Gas Sample Site Radial, right; Blood Gas Sample Type Arterial
--- NOTE | 2020-08-10 16:15 | P.PN_ITS ---
Subjective Subjective: Interval history: Patient was seen this morning, he is in better spirits, he tells me that he had sleep overnight, he did have episodes of anxiety overnight, requiring Precedex drip, no fevers, no cough Vitals/I&O/Wt Last Vital Signs Temp 98.8 F 08/10/20 14:00 Pulse 64 08/10/20 14:00 Resp 19 H 08/10/20 14:00 BP 121/85 08/10/20 14:00 Pulse Ox 96 08/10/20 14:00 08/10/20 08/10/20 08/10/20 06:59 14:59 22:59 Intake Total 1260 / 1260 Output Total 550 / 1750 650 / 650 Balance -550 / -530 610 / 610 Physical Exam Const: COMMON NORMALS: no acute distress and patient oriented x3 Resp: COMMON NORMALS: normal respiratory effort, No retractions, No use of accessory muscles and clear to auscultation bilaterally AUSCULTATION: clear to auscultation bilaterally Cardio: COMMON NORMALS: regular rate, regular rhythm, S1 normal heart sound present and S2 normal heart sound present RATE: regular rate RHYTHM: regular rhythm HEART SOUNDS: S1 normal heart sound present and S2 normal heart sound present GI: COMMON NORMALS: Normal to inspection, nondistended, normoactive bowel sounds present, Soft to palpation and non-tender PALPATION: Yes Soft to palpation Extremity: COMMON NORMALS: no pedal edema Neuro: COMMON NORMALS: patient oriented x3 Psych: COMMON NORMALS: mental status grossly normal Data : 08/10/20 03:34 08/10/20 03:34 A&P Assessment and plan (1) Acute respiratory failure with hypoxia: Ac Respiratory failure with hypoxia secondary to Covid pneumonia: Currently in the ICU, on high flow oxygen, wean oxygen as tolerated, Precedex drip for anxiety Xray chest : Asymmetric left lower lobe patchy ground-glass opacities Currently on COVID -19 protocol (remdesivir 5-day course, dexamethasone 10-day course) Trend inflammatory markers ( ESR, CRP, D dimer, ferritin ) Zinc 50 mg p.o. daily Ascorbic acid 500 mg q12 h daily vitamin D Ceftriaxone 1 gm q24 h daily Azithromycon 500 mg I.V Daily Albuterol, Advair Budesonide 0.5 mg Inhalation BID Status post 1 dose Tocilizumab 08/01/2020 pulmonary has been consulted Incentive spirometer and flutter valve Lasix as needed (to maintain fluid neutral state) DVT prophylaxis Lovenox CT angiogram of the chest negative for evidence of pulmonary midline Cardiac echocardiogram EF 66%, no regional wall motion abnormalities Full code Lovenox for DVT prophylaxis Plan for today, try to wean Precedex, continue steroids, continue antibiotics, continue remdesivir, monitor respiratory status, wean oxygen Status: Acute (2) COVID-19 determined by clinical diagnostic criteria: Status: Acute (3) Rash: Nonpruritic, macular rash on abdomen, nonblanching, continue to monitor No known penicillin allergy No lip or tongue swelling Status: Acute Additional A&P Information Full code Cardiac diet DVT prophylaxis Lovenox Attestations Medical Necessity Statement*: Patient requires hospitalization for acute respiratory failure with hypoxia secondary COVID-19 Coding Level of Care Code Acute Aircraft Body Repairer for Chg Fwd Diagnoses Acute respiratory failure with hypoxia J96.01 COVID-19 determined by clinical diagnostic criteria U07.1 Rash R21
[2020-08-10] MEDS: remdesivir 100 MG in sodium chloride 0.9% (100 ml) 100 ML IV (18:06)
--- NOTE | 2020-08-10 19:15 | P.CONIM_ITS ---
Providers/Reason For Consult Consulting Physician/Specialty*: Manuel Medel MD/ Pulmonary Critical Care medicine Reason for Consult*: Acute hypoxic respiratory failure secondary to ARDS due to COVID-19 pneumonia Requesting Physician: Kevin Parr MD Attending Physician: Kevin Parr MD History of Present Illness History of Present Illness Huber Licona is a 59 year old male with no pertinent past medical history contracted COVID-19 on 07/29/2020 along with his presented to ER on 08/07/2020 with chief complaint of worsening shortness of breath. During admission he reported having excessive bouts of nonproductive cough, shortness of breath and at home 103 Fahrenheit, which are associated with macular rash around his abdominal wall, denied any other symptoms. He is symptoms gradually got worse and saturation was in the low 80s and he called EMS and came to ER. On arrival in ER was saturating 89 to 90% requiring 3 to 4 L of nasal cannula, elevated inflammatory markers however not septic. Calcitonin unremarkable. Started on remdesivir and Decadron. He reported going to a restaurant now comes in 1 week after his tested positive for COVID-19 pneumonia. He is not vaccinated On day 3 of admission 08/09/2020, patient shortness of breath got worse especially on exertion and became lightheaded with no loss of consciousness and his O2 requirements went up to [facility] 40 L 60% FiO2. 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 He was transferred to ICU for close monitoring given worsening respiratory status. In ICU was given 1 dose of Tocilizumab and pulmonary critical care consult requested for acute hypoxic respiratory failure secondary to ARDS due to COVID-19 pneumonia. Patient seen at bedside today morning -Currently on 40 L FiO2 56% on high flow nasal cannula saturating 92% -Reported his dyspnea is slightly better than last 2 days and denied any other complaints -Labs and imaging reviewed and pertinent findings incorporated in assessment and plan Review of Systems General: Reports: 10 or more systems reviewed and unremarkable except in HPI and below Meds/Allergies Home Medications and Allergies Home Medications Medication Instructions Recorded Confirmed Last Taken Type No Known Home Medications 08/08/20 08/08/20 Unknown History Allergies Allergy/AdvReac Type Severity Reaction Status Date / Time No Known Allergies Allergy Verified 08/08/20 09:55 Current Medications Current Medications Generic Name Dose Route Start Last Admin Trade Name Freq PRN Reason Stop Dose Admin Acetaminophen 500 mg 08/07/20 20:24 08/08/20 15:21 Acetaminophen 500 Mg Tablet PO 500 mg Q4H PRN Administration fever Albuterol Sulfate 2 puff 08/07/20 20:24 08/08/20 17:00 Albuterol 8 Gm Mdi INHALATION 2 puff Q4H.RESPIRATORY PRN Administration SHORTNESS OF BREATH Ascorbic Acid 500 mg 08/09/20 09:00 08/10/20 18:06 Ascorbic Acid 500 Mg Tablet PO 500 mg BID HORTENCIA Administration Dexamethasone 6 mg 08/10/20 08:00 08/10/20 08:03 Dexamethasone 4 Mg/Ml Inj IVP 6 mg Q24H HORTENCIA Administration Guaifenesin/Dextromethorphan 10 ml 08/07/20 20:29 08/09/20 04:31 Guaifenesin-Dextromethorphan Udc 10 Ml PO 10 ml Q4H PRN Administration COUGH Remdesivir 100 mg/ Sodium 100 mls @ 100 mls/hr 08/08/20 18:00 08/10/20 18:06 Chloride IV 08/11/20 18:59 100 mls/hr Q24H HORTENCIA Administration Ceftriaxone Sodium 1,000 mg/ 50 mls @ 100 mls/hr 08/08/20 09:00 08/10/20 08:44 Sodium Chloride IV Infused Q24H HORTENCIA Infusion Protocol Azithromycin 500 mg/ Sodium 250 mls @ 250 mls/hr 08/08/20 09:30 08/10/20 09:11 Chloride IV Infused Q24H HORTENCIA Infusion Protocol Dexmedetomidine HCl 400 mcg/ 104 mls @ 0 mls/hr 08/10/20 07:30 08/10/20 08:03 Sodium Chloride IV 0.1 mcg/kg/hr .Q0M HORTENCIA 2.6 mls/hr Administration Protocol Per Protocol Lorazepam 0.5 mg 08/09/20 20:42 08/09/20 22:06 Lorazepam 2 Mg/Ml Inj 1 Ml IVP 0.5 mg Q12H PRN Administration ANXIETY Fluticasone/Salmeterol 1 puff 08/09/20 08:00 08/09/20 20:55 Fluticasone-Salmeterol 250-50 Diskus INHALATION Not Given BID.RESPIRATORY HORTENCIA Vitamin D 1,000 unit 08/09/20 10:00 08/10/20 08:02 Cholecalciferol (Vitamin D3) 1,000 Unit Tablet PO 1,000 unit DAILY HORTENCIA Administration Zinc Gluconate 50 mg 08/09/20 09:00 08/10/20 08:02 Zinc Gluconate 50 Mg Tablet PO 50 mg DAILY HORTENCIA Administration PFSH Acute PFSH: Medical History No pertinent past medical history Surgical History H/O inguinal hernia repair H/O umbilical hernia repair Family History Denies family history of Clotting disorder Chronic kidney disease (CKD) Social History Smoking and tobacco status: never smoked Alcohol intake: current Alcohol intake frequency: holidays/special occasions only Substance/Drug Use: never Household members: spouse Housing: House 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 Vitals/I&O/Wt Last Vital Signs Temp 98.2 F 08/10/20 18:00 Pulse 64 08/10/20 18:00 Resp 19 H 08/10/20 18:00 BP 134/87 08/10/20 18:00 Pulse Ox 96 08/10/20 18:00 08/10/20 08/10/20 08/10/20 06:59 14:59 22:59 Intake Total 1260 / 1260 480 / 1740 Output Total 550 / 1750 650 / 650 200 / 850 Balance -550 / -530 610 / 610 280 / 890 Physical Exam Narrative: EXAM NARRATIVE: General: alert, NAD HEENT: conj clear, EOMI, PERRL, mmm, Neck: supple, no meningismus Heme: no cervical LAP Pulmonary: CTAB, no wheezing, rhonchi, crackles Cardiovascular: rrr, nl s1s2, no mrg Abdomen: Nonpruritic, macular rash on abdomen, nonblanching, soft, nt, nd, no r/g, bs+ Extremities: pulses +, no edema, no c/c : no CVA tenderness Skin: intact, no rash MSK: no back or neck pain Neurologic: grossly intact Data Labs: Other Labs: Laboratory Results WBC 4.5 10^3/uL (4.0- 10.0) 08/10/20 03:34 RBC 4.76 10^6/uL (4.1 -5.3) 08/10/20 03:34 Hgb 14.5 g/dL (11.7-1 6.6) 08/10/20 03:34 Hct 43.5 % (42.0-52.0 ) 08/10/20 03:34 MCV 91.4 fL (80-94) 08/10/20 03:34 MCH 30.5 pg (28.0-34. 0) 08/10/20 03:34 MCHC 33.3 g/dL (30.0-3 6.0) 08/10/20 03:34 RDW 12.4 % (12.1-15.1 ) 08/10/20 03:34 Plt Count 286 10^3/cmm (130 -400) 08/10/20 03:34 MPV 9.4 fL (7.4-10.4) 08/10/20 03:34 Neut % (Auto) 61.1 % 08/10/20 03:34 Lymph % (Auto) 27.8 % 08/10/20 03:34 [place] % (Auto) 10.5 % 08/10/20 03:34 Eos % (Auto) 0.0 % 08/10/20 03:34 Baso % (Auto) 0.2 % 08/10/20 03:34 Neut # (Auto) 2.72 10^3/uL (1.8 -7.7) 08/10/20 03:34 Lymph # (Auto) 1.2 10^3/uL (0.8- 4.8) 08/10/20 03:34 [place] # (Auto) 0.5 10^3/uL (0.2- 0.9) 08/10/20 03:34 Eos # (Auto) 0.0 10^3/uL (0.0- 0.8) 08/10/20 03:34 Baso # (Auto) 0.0 10^3/uL (0.0- 0.1) 08/10/20 03:34 Nucleated RBC % (a uto) 0 % 08/10/20 03:34 Nucleated RBCs # 0.0 /100WBC 08/10/20 03:34 ESR 30 mm/hr (0-10) H 08/10/20 03:34 PT 13.70 SECONDS (12 .1-14.9) 08/10/20 03:34 INR 1.01 (0.8-1.2) 08/10/20 03:34 Fibrinogen 489 mg/dL (174-49 8) 08/07/20 18:21 D-Dimer 0.46 ug/mIFEU (0- 0.59) 08/10/20 03:34 Specimen Type Arterial 08/10/20 04:11 Sample Site Radial, right 08/10/20 04:11 ABG pH 7.52 (7.35-7.45) H 08/10/20 04:11 ABG pCO2 33.5 mmHg (35-45) L 08/10/20 04:11 ABG pO2 51.4 mmHg (80.0-1 00.0) L 08/10/20 04:11 ABG HCO3 27.3 mmol/L (22-2 6) H 08/10/20 04:11 ABG Base Excess 4.7 mmol/L (-2.0- 2.0) H 08/10/20 04:11 Paul Test Pos 08/10/20 04:11 Hematocrit 47.5 % (42-52) 08/10/20 04:11 O2 Delivery Device [email or web address] 08/10/20 04:11 O2 Liters/Min 45.0 % 08/10/20 04:11 FiO2 54.0 % 08/10/20 04:11 Abalone Fisherman ID Hinja 08/10/20 04:11 Sodium 139 mmol/L (136-1 45) 08/10/20 03:34 Potassium 3.7 mmol/L (3.5-5 .1) 08/10/20 03:34 Chloride 101 mmol/L (98-10 7) 08/10/20 03:34 Carbon Dioxide 25 mmol/L (22-29) 08/10/20 03:34 Anion Gap 16.7 (5-19) 08/10/20 03:34 BUN 19 mg/dL (6-20) 08/10/20 03:34 Creatinine 0.7 mg/dL (0.7-1. 2) 08/10/20 03:34 GFR Calculation 115.4 mL/min (90- 130) 08/10/20 03:34 Glucose 123 mg/dL (65-115 ) H 08/10/20 03:34 Calculated Osmolal ity 292 mOsm/kg (285- 295) 08/10/20 03:34 Lactic Acid 1.1 mmol/L (0.5-2 .2) 08/07/20 18:21 Lactate 1.1 mmol/L (0.5-2 .2) 08/10/20 03:34 Calcium 8.1 mg/dL (8.5-10 .5) L 08/10/20 03:34 Phosphorus 3.9 mg/dL (2.5-4. 5) 08/10/20 03:34 Magnesium 2.3 mg/dL (1.7-2. 3) 08/10/20 03:34 Ferritin 2692 ng/mL (30-40 0) H 08/10/20 03:34 Total Bilirubin 0.5 mg/dL (0.15-1 .2) 08/10/20 03:34 AST 74 U/L (0-40) H 08/10/20 03:34 ALT 86 U/L (0-41) H 08/10/20 03:34 Alkaline Phosphata se 64 IU/L (40-130) 08/10/20 03:34 Lactate Dehydrogen ase 375 U/L (135-225) H 08/08/20 05:10 Creatine Kinase 367 U/L (39-308) H* 08/10/20 03:34 C-Reactive Protein 27.2 mg/L (0.0-4. 9) H 08/10/20 03:34 NT-Pro-B Natriuret Pep 10 pg/mL (0-125) 08/10/20 03:34 Total Protein 6.3 g/dL (6.6-8.7 ) L 08/10/20 03:34 Albumin 3.4 g/dL (3.5-5.2 ) L 08/10/20 03:34 Globulin 2.9 g/dL (1.3-4.6 ) 08/10/20 03:34 Procalcitonin 0.16 ng/mL (0-0.5 ) 08/10/20 03:34 Impressions Chest CTA 08/09/20 09:58 IMPRESSION: 1. Proximal main pulmonary arteries are normal. No suspicious filling defects to indicate pulmonary embolus. 2. Hazy bilateral groundglass infiltrates compatible with COVID 19 pneumonia. 3. Partial airspace consolidation left lower lobe. 4. Small esophageal hiatal hernia. Chest X-Ray 08/10/20 07:00 IMPRESSION: No significant change is seen. A&P Assessment and plan (1) Pneumonia due to 2019 novel coronavirus: Status: Acute (2) Acute respiratory failure with hypoxia: Status: Acute (3) COVID-19 determined by clinical diagnostic criteria: Status: Acute (4) ARDS (adult respiratory distress syndrome): Status: Acute (5) Rash: Status: Acute #Acute respiratory failure with hypoxia due to ARDS secondary to COVID-19 pneumonia -Reported contracted symptoms 9 days ago 07/31/2020 -Covid PCR positive -CTA 08/09/2020-ruled out PE. Hazy bilateral groundglass infiltrates compatible with COVID 19 pneumonia.Partial airspace consolidation left lower lobe. -Echo 08/09/2020 ejection fraction 66% with no regional motion abnormalities -ABG 7.5 / on HFNC 45 L and 54% -Afebrile,Normal WBC, procalcitonin 0.16 -Elevated ferritin, improving CRP, ESR, N-ydqit-sdydd every 48 hour -Since 08/07/2020 on remdesivir and dexamethasone 6 mg IVP daily -Received 1 dose of Tocilizumab on 08/09/2020 -Also covered with Rocephin and azithromycin day 3-to complete 7 days -Continue Advair 1 puff twice daily; albuterol 2 puffs every 4 as needed for shortness of breath; continue incentive spirometry and flutter valve and out of bed to chair -Precedex for anxiety -Lovenox 40 daily for DVT prophylaxis -CK 367, normal renal functions, electrolytes, adequate urine output-overall +2 L positive since admission-continue Lasix 20 mg IV as needed to keep net negative to even -Improving LFTs-likely secondary to COVID-19 pneumonia -Sugars well controlled -Regular diet -Continue close clinical monitoring of clinical condition, respiratory status with saturations and hemodynamics -Full code -Prognosis-guarded Medical condition, plan of care and prognosis everything explained in detail to the patient. He verbalized understanding and agreed with the plan. Recommendations conveyed to hospitalist, RN, RT covering the patient Consult Attestations Medical Necessity Statement: Acute hypoxic respiratory failure secondary to ARDS due to COVID-19 pneumonia requiring high flow nasal cannula requiring close monitoring of clinical status and respiratory status with saturations Time Spent in Patient Care: Greater than 35 minutes (>than 50% of time spent in counselling and/or direct pt care on unit) . Critical Care Time: The high probability of a clinically significant, sudden or life threatening deterioration of the patient's [respiratory] system(s) required my full and direct attention, intervention and personal management. The critical care time is as shown. This time is in addition to time spent performing any reported procedures but includes the following: [x] Data and vital sign review and interpretation [x] Patient assessment, examination and intervention [x] Documentation [x] Medication orders and management Critical Care Time (min): 45 Coding Level of Care Code New Pt Acute Pharmacy Service Associate for Chg Fwd Patient Type New History Comprehensive Exam Comprehensive Medical Decision Making High Complexity Diagnoses Pneumonia due to 2019 novel coronavirus U07.1; J12.82 Acute respiratory failure with hypoxia J96.01 COVID-19 determined by clinical diagnostic criteria U07.1 ARDS (adult respiratory distress syndrome) J80 Rash R21 Time Spent (min) 45
[2020-08-10] MEDS: enoxaparin 40 mg/0.4 mL Syringe SUBCUT (23:05)
[2020-08-10] MEDS: LORazepam 2 mg/mL INJ 1 mL 0.5 MG IVP (23:55)
[2020-08-11] VITALS (199 sets, daily range): BP systolic 96–154; BP diastolic 64–106; PULSE 46–88; RESP 7–29; TEMP 37–37.2; O2SAT 79–99
[2020-08-11 04:59] LABS: ABG PCO2 28.6 mmHg (35-45); ABG PH Result 7.55 (7.35-7.45); Arterial Blood Gas Hematocrit 46.5 % (42-52); Base Excess ABG 3.9 mmol/L (-2.0-2.0); Blood Gas Allen Test Pos; Blood Gas Sample Site Radial, right; Blood Gas Sample Type Arterial; HCO3 ABG 25.2 mmol/L (22-26); PO2 ABG 49.1 mmHg (80.0-100.0)
[2020-08-11 05:07] LABS: Oxygen Device HHFNC
[2020-08-11 05:31] LABS: Eosinophils % 0.2 %; Hematocrit 44.5 % (42.0-52.0); Hemoglobin 14.7 g/dL (11.7-16.6); Lymphocytes # 1.2 10^3/uL (0.8-4.8); Lymphocytes % 22.2 %; Mean Corpuscular Hemoglobin 30.6 pg (28.0-34.0); Mean Corpuscular Volume 92.5 fL (80-94); Monocytes # 0.5 10^3/uL (0.2-0.9); Monocytes % 8.1 %; Neutrophils # 3.87 10^3/uL (1.8-7.7); Neutrophils % 69.1 %; Nucleated Red Blood Cells % 0 %; Platelet Count 336 10^3/cmm (130-400); Red Blood Count 4.81 10^6/uL (4.1-5.3); Red Cell Distribution Width 12.5 % (12.1-15.1); White Blood Count 5.6 10^3/uL (4.0-10.0)
[2020-08-11 05:43] LABS: INR 1.06 (0.8-1.2)
[2020-08-11 05:46] LABS: D Dimer 0.46 ug/mIFEU (0-0.59)
[2020-08-11 05:50] LABS: Lactate (Lactic Acid level) 2.1 mmol/L (0.5-2.2)
[2020-08-11 05:59] LABS: NT Pro B Type Natriuretic Pept 7 pg/mL (0-125); Procalcitonin 0.08 ng/mL (0-0.5)
--- NOTE | 2020-08-11 06:00 | ECG_ITS ---
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 Measurements Intervals [place] Rate: 58 P: 50 UT: 212 QRS: 30 QRSD: 94 T: 23 QT: 450 QTc: 446 Interpretive Statements SINUS BRADYCARDIA WITH FIRST DEGREE AV BLOCK Compared to ECG 08/10/2020 04:05:16 First degree AV block now present Sinus rhythm no longer present Electronically Signed On 08-12-2020 7:21:34 CDT by Nataliia Heard M.D. [id number]
[2020-08-11 06:13] LABS: Alanine Aminotransferase 106 U/L (0-41); Albumin Level 3.3 g/dL (3.5-5.2); Alkaline Phosphatase 61 IU/L (40-130); Anion Gap 14.9 (5-19); Aspartate Amino Transferase 75 U/L (0-40); Blood Urea Nitrogen 23 mg/dL (6-20); C Reactive Protein 10.7 mg/L (0.0-4.9); Calcium 8.3 mg/dL (8.5-10.5); Carbon Dioxide 26 mmol/L (22-29); Chloride 100 mmol/L (98-107); Creatine Phosphokinase 155 U/L (39-308); Globulin 2.8 g/dL (1.3-4.6); Glomerular Filtration Rate 115.4 mL/min (90-130); Glucose 111 mg/dL (65-115); Magnesium 2.3 mg/dL (1.7-2.3); Osmolality Calculated 288 mOsm/kg (285-295); Phosphorus 3.5 mg/dL (2.5-4.5); Potassium 3.9 mmol/L (3.5-5.1); Sodium 137 mmol/L (136-145); Total Bilirubin 0.5 mg/dL (0.15-1.2); Total Protein 6.1 g/dL (6.6-8.7)
[2020-08-11 06:32] LABS: Ferritin 2184 ng/mL (30-400)
[2020-08-11 06:35] LABS: Erythrocyte Sedimentation Rate 24 mm/hr (0-10)
[2020-08-11] MEDS: zinc gluconate 50 mg Tablet PO (08:16)
[2020-08-11] MEDS: cefTRIAXone 1,000 MG in sodium chloride 0.9% (plus) 50 ML 100 MG IV (08:16)
[2020-08-11] MEDS: cholecalciferol (vitamin D3) 1,000 unit Tablet 1000 UNIT PO (08:16)
[2020-08-11] MEDS: ascorbic acid 500 mg Tablet PO ×2 (08:16→17:13)
[2020-08-11] MEDS: dexamethasone 4 mg/mL INJ 6 MG IVP (08:16)
[2020-08-11] MEDS: azithromycin 500 MG in sodium chloride 0.9% 250 ML 250 MG IV (08:53)
--- NOTE | 2020-08-11 09:01 | PC.NURSE ---
Report received. Pt resting in bed. No c/o pain or SOB. Remains on HFNC. VSS. AAOx4. Makes all needs known. C/o anxiety at times. No issues at this time.
--- NOTE | 2020-08-11 09:37 | PC.CHAP ---
Pastoral Care Encounter/Spiritual Assessment Type of Contact [] Declined lvn visit [] Patient/Family/Request visit [] Outpatient visit [] Follow-up visit [] Physician referral [] Code/Alert [x] Routine visit [] Staff referral [] Actively dying [] Patient sleeping [] Family support [] [] Out of room [] Palliative care [] [] Receiving care in room [] Pre-surgical visit [] Trauma [] Long length of stay [x] ICU visit [x] Other: isolated... staff Relational/Emotional Strength [] Patient feels connected with others/family/visitors/staff [] Distress [] Loneliness/isolation [] Abandonment Spirituality of Patient [] Person of [place] [] Attends Moravian of their [place] [] Believes in Prayer [] Reads Bible or Quaker materials [] There are Spiritual issues to be addressed Director Of Software Engineering Interventions [x] Prayer [] Active listening [] Non-anxious presence [] Spiritual/emotional support [] Crisis/trauma care [] Spiritual counseling [] Bereavement support [] Provided bereavement packet [] Provided Bible/devotional materials [] Provided toy/stuffed animal, coloring book to patient or family member [] Provided Communion [] Anointing/[place] [] Salvation [x] Completed spiritual assessment [] Other: Impact on Illness or Injury [] Angry [] Fearful [] Anxious [] Often cries [] Exhaustion [] Unable to work [] Unable to attend yarsanism [] Unable to walk/stand [] Unable to read [] Unable to drive [] Unable to eat/drink [] Unable to sleep [] Unable to be with family [] Patient intubated [] Other: Summary Time spent with patient
--- NOTE | 2020-08-11 10:47 | PC.NURSE ---
Pt sitting up in chair in room, tolerating well. Will monitor.
--- NOTE | 2020-08-11 15:11 | P.PN_ITS ---
Subjective Subjective: Interval history: Patient was seen this morning, he is on 70% FiO2, he tells me that he did have 1 episode of anxiety overnight, improved with Ativan, he feels better this morning, no fevers, no chills, has a cough, he is ready to get up into a chair Vitals/I&O/Wt Last Vital Signs Temp 98.6 F 08/11/20 12:55 Pulse 72 08/11/20 14:20 Resp 18 08/11/20 14:20 BP 119/77 08/11/20 14:20 Pulse Ox 94 08/11/20 14:20 08/11/20 08/11/20 08/11/20 06:59 14:59 22:59 Intake Total 41.297 / 1793.378 9892 / 1260 Output Total 600 / 1450 250 / 250 Balance -558.703 / 520.968 1947 / 1010 Physical Exam Const: COMMON NORMALS: no acute distress and patient oriented x3 Resp: COMMON NORMALS: normal respiratory effort, No retractions, No use of accessory muscles and clear to auscultation bilaterally AUSCULTATION: clear to auscultation bilaterally Cardio: COMMON NORMALS: regular rate, regular rhythm, S1 normal heart sound present and S2 normal heart sound present RATE: regular rate RHYTHM: regular rhythm HEART SOUNDS: S1 normal heart sound present and S2 normal heart sound present GI: COMMON NORMALS: Normal to inspection, nondistended, normoactive bowel sounds present, Soft to palpation, non-tender and No hepatosplenomegaly present PALPATION: Yes Soft to palpation and Yes No hepatosplenomegaly present Extremity: COMMON NORMALS: no pedal edema Neuro: COMMON NORMALS: patient oriented x3 Psych: COMMON NORMALS: mental status grossly normal Data : 08/11/20 05:07 08/11/20 05:07 A&P Assessment and plan (1) Acute respiratory failure with hypoxia: Ac Respiratory failure with hypoxia secondary to Covid pneumonia: Currently in the ICU, on high flow oxygen, wean oxygen as tolerated, Precedex drip for anxiety Xray chest : Asymmetric left lower lobe patchy ground-glass opacities Currently on COVID -19 protocol (remdesivir 5-day course, dexamethasone 10-day course) Trend inflammatory markers ( ESR, CRP, D dimer, ferritin ) Zinc 50 mg p.o. daily Ascorbic acid 500 mg q12 h daily vitamin D Ceftriaxone 1 gm q24 h daily Azithromycon 500 mg I.V Daily Albuterol, Advair Budesonide 0.5 mg Inhalation BID Status post 1 dose Tocilizumab 08/01/2020 pulmonary has been consulted Incentive spirometer and flutter valve Lasix as needed (to maintain fluid neutral state) DVT prophylaxis Lovenox CT angiogram of the chest negative for evidence of pulmonary midline Cardiac echocardiogram EF 66%, no regional wall motion abnormalities Full code Lovenox for DVT prophylaxis Plan for today, get up into a chair, continue steroids, continue antibiotics, monitor respiratory status, wean oxygen as tolerated Status: Acute (2) COVID-19 determined by clinical diagnostic criteria: Status: Acute (3) Rash: Nonpruritic, macular rash on abdomen, nonblanching, continue to monitor No known penicillin allergy No lip or tongue swelling Status: Acute Additional A&P Information Full code Cardiac diet DVT prophylaxis Lovenox Attestations Medical Necessity Statement*: Patient requires hospitalization for acute respiratory failure secondary to COVID-19 pneumonia Coding Level of Care Code Acute Mechanical Service Representative for [facility] Diagnoses Acute respiratory failure with hypoxia J96.01 COVID-19 determined by clinical diagnostic criteria U07.1 Rash R21
[2020-08-11] MEDS: remdesivir 100 MG in sodium chloride 0.9% (100 ml) 100 ML IV (17:12)
[2020-08-11] MEDS: lactulose oral liq 20 gm/30 mL UDC 15 GM PO (17:13)
--- NOTE | 2020-08-11 17:50 | PC.NURSE ---
Pt O2 demand down t0 64% at this time. No anxiety noted. Pt using IS and pardeep very well today. No other issues.
--- NOTE | 2020-08-11 21:06 | PM.PN ---
Subjective Subjective: Interval history: -Patient seen today morning at bedside -Yesterday overnight patient has an episode of anxiety and was started on Precedex but later became bradycardic and has to stop Precedex -FiO2 was increased to 75% -In the morning patient reported that his breathing is better after increasing to 75% and is in less distress -Did not have any BM-started on lactulose 15 mg twice daily -Labs and imaging reviewed and pertinent findings incorporated in the assessment and plan Medications: Reviewed: Yes Vitals/I&O/Wt Last Vital Signs Temp 98.8 F 08/11/20 16:00 Pulse 65 08/11/20 20:39 Resp 19 H 08/11/20 20:39 BP 131/84 08/11/20 18:00 Pulse Ox 94 08/11/20 20:39 08/11/20 08/11/20 08/11/20 06:59 14:59 22:59 Intake Total 41.297 / 9192.287 9586 / 1260 940 / 2200 Output Total 600 / 1450 250 / 250 550 / 800 Balance -558.703 / 811.437 9854 / 1010 390 / 1400 Physical Exam Narrative: EXAM NARRATIVE: General: alert, NAD HEENT: conj clear, EOMI, PERRL, mmm, Neck: supple, no meningismus Heme: no cervical LAP Pulmonary: CTAB, no wheezing, rhonchi, crackles Cardiovascular: rrr, nl s1s2, no mrg Abdomen: Nonpruritic, macular rash on abdomen, nonblanching, soft, nt, nd, no r/g, bs+ Extremities: pulses +, no edema, no c/c : no CVA tenderness Skin: intact, no rash MSK: no back or neck pain Neurologic: grossly intact Data : 08/11/20 05:07 08/11/20 05:07 Other Labs: Laboratory Results WBC 5.6 10^3/uL (4.0-10.0) 08/11/20 05:07 RBC 4.81 10^6/uL (4.1-5.3) 08/11/20 05:07 Hgb 14.7 g/dL (11.7-16.6) 08/11/20 05:07 Hct 44.5 % (42.0-52.0) 08/11/20 05:07 MCV 92.5 fL (80-94) 08/11/20 05:07 MCH 30.6 pg (28.0-34.0) 08/11/20 05:07 MCHC 33.0 g/dL (30.0-36.0) 08/11/20 05:07 RDW 12.5 % (12.1-15.1) 08/11/20 05:07 Plt Count 336 10^3/cmm (130-400) 08/11/20 05:07 MPV 9.0 fL (7.4-10.4) 08/11/20 05:07 Neut % (Auto) 69.1 % 08/11/20 05:07 Lymph % (Auto) 22.2 % 08/11/20 05:07 [place] % (Auto) 8.1 % 08/11/20 05:07 Eos % (Auto) 0.2 % 08/11/20 05:07 Baso % (Auto) 0.0 % 08/11/20 05:07 Neut # (Auto) 3.87 10^3/uL (1.8-7.7) 08/11/20 05:07 Lymph # (Auto) 1.2 10^3/uL (0.8-4.8) 08/11/20 05:07 [place] # (Auto) 0.5 10^3/uL (0.2-0.9) 08/11/20 05:07 Eos # (Auto) 0.0 10^3/uL (0.0-0.8) 08/11/20 05:07 Baso # (Auto) 0.0 10^3/uL (0.0-0.1) 08/11/20 05:07 Nucleated RBC % (auto) 0 % 08/11/20 05:07 Nucleated RBCs # 0.0 /100WBC 08/11/20 05:07 ESR 24 mm/hr (0-10) H 08/11/20 05:07 PT 14.20 SECONDS (12.1-14.9) 08/11/20 05:07 INR 1.06 (0.8-1.2) 08/11/20 05:07 Fibrinogen 489 mg/dL (174-498) 08/07/20 18:21 D-Dimer 0.46 ug/mIFEU (0-0.59) 08/11/20 05:07 Specimen Type Arterial 08/11/20 04:28 Sample Site Radial, right 08/11/20 04:28 ABG pH 7.55 (7.35-7.45) H 08/11/20 04:28 ABG pCO2 28.6 mmHg (35-45) L 08/11/20 04:28 ABG pO2 49.1 mmHg (80.0-100.0) L 08/11/20 04:28 ABG HCO3 25.2 mmol/L (22-26) 08/11/20 04:28 ABG Base Excess 3.9 mmol/L (-2.0-2.0) H 08/11/20 04:28 Paul Test Pos 08/11/20 04:28 Hematocrit 46.5 % (42-52) 08/11/20 04:28 O2 Delivery Device Hhfnc 08/11/20 04:28 O2 Liters/Min 45.0 % 08/11/20 04:28 FiO2 52.0 % 08/11/20 04:28 Automotive Internet Sales Manager ID Posjo 08/11/20 04:28 Sodium 137 mmol/L (136-145) 08/11/20 05:07 Potassium 3.9 mmol/L (3.5-5.1) 08/11/20 05:07 Chloride 100 mmol/L (98-107) 08/11/20 05:07 Carbon Dioxide 26 mmol/L (22-29) 08/11/20 05:07 Anion Gap 14.9 (5-19) 08/11/20 05:07 BUN 23 mg/dL (6-20) H 08/11/20 05:07 Creatinine 0.7 mg/dL (0.7-1.2) 08/11/20 05:07 GFR Calculation 115.4 mL/min (90-130) 08/11/20 05:07 Glucose 111 mg/dL (65-115) 08/11/20 05:07 Calculated Osmolality 288 mOsm/kg (285-295) 08/11/20 05:07 Lactic Acid 1.1 mmol/L (0.5-2.2) 08/07/20 18:21 Lactate 2.1 mmol/L (0.5-2.2) 08/11/20 05:07 Calcium 8.3 mg/dL (8.5-10.5) L 08/11/20 05:07 Phosphorus 3.5 mg/dL (2.5-4.5) 08/11/20 05:07 Magnesium 2.3 mg/dL (1.7-2.3) 08/11/20 05:07 Ferritin 2184 ng/mL (30-400) H 08/11/20 05:07 Total Bilirubin 0.5 mg/dL (0.15-1.2) 08/11/20 05:07 AST 75 U/L (0-40) H 08/11/20 05:07 ALT 106 U/L (0-41) H 08/11/20 05:07 Alkaline Phosphatase 61 IU/L (40-130) 08/11/20 05:07 Lactate Dehydrogenase 375 U/L (135-225) H 08/08/20 05:10 Creatine Kinase 155 U/L (39-308) 08/11/20 05:07 C-Reactive Protein 10.7 mg/L (0.0-4.9) H 08/11/20 05:07 NT-Pro-B Natriuret Pep 7 pg/mL (0-125) 08/11/20 05:07 Total Protein 6.1 g/dL (6.6-8.7) L 08/11/20 05:07 Albumin 3.3 g/dL (3.5-5.2) L 08/11/20 05:07 Globulin 2.8 g/dL (1.3-4.6) 08/11/20 05:07 Procalcitonin 0.08 ng/mL (0-0.5) 08/11/20 05:07 Impressions Chest CTA 08/09/20 09:58 IMPRESSION: 1. Proximal main pulmonary arteries are normal. No suspicious filling defects to indicate pulmonary embolus. 2. Hazy bilateral groundglass infiltrates compatible with COVID 19 pneumonia. 3. Partial airspace consolidation left lower lobe. 4. Small esophageal hiatal hernia. Chest X-Ray 08/10/20 07:00 IMPRESSION: No significant change is seen. A&P Assessment and plan (1) Pneumonia due to 2019 novel coronavirus: Status: Acute (2) Acute respiratory failure with hypoxia: Status: Acute (3) COVID-19 determined by clinical diagnostic criteria: Status: Acute (4) ARDS (adult respiratory distress syndrome): Status: Acute (5) Rash: Status: Acute #Acute respiratory failure with hypoxia due to ARDS secondary to COVID-19 pneumonia -Reported contracted symptoms 07/31/2020 -Covid PCR positive -CTA 08/09/2020-ruled out PE. Hazy bilateral groundglass infiltrates compatible with COVID 19 pneumonia.Partial airspace consolidation left lower lobe. -Echo 08/09/2020 ejection fraction 66% with no regional motion abnormalities -ABG 7.5 07/09///on HFNC 45 L and 52 %-FiO2 increased to 75% -Afebrile,Normal WBC, procalcitonin 0.16 -Elevated ferritin, improving CRP, ESR, L-oidmg-yhvtc every 48 hour -Since 08/07/2020 on remdesivir and dexamethasone 6 mg IVP daily -Received 1 dose of Tocilizumab on 08/09/2020 -Also covered with Rocephin and azithromycin day 3-to complete 7 days -Continue Advair 1 puff twice daily; albuterol 2 puffs every 4 as needed for shortness of breath; continue incentive spirometry and flutter valve and out of bed to chair -Lovenox 40 daily for DVT prophylaxis -CK 367 >> 155 normal renal functions, electrolytes, adequate urine output-overall +3 L positive since admission-continue Lasix 20 mg IV as needed to keep net negative to even -Elevated LFTs-likely secondary to COVID-19 pneumonia-monitor -Sugars well controlled -Regular diet -Continue close clinical monitoring of clinical condition, respiratory status with saturations and hemodynamics -Full code -Prognosis-guarded Medical condition, plan of care and prognosis everything explained in detail to the patient. He verbalized understanding and agreed with the plan. Recommendations conveyed to hospitalist, RN, RT covering the patient Attestations Medical Necessity Statement*: Acute hypoxic respiratory failure secondary to ARDS due to COVID-19 pneumonia currently on high flow nasal cannula and requires close monitoring for respiratory status and saturations Time Spent in Patient Care: Greater than 35 minutes (>than 50% of time spent in counselling and/or direct pt care on unit). Critical Care Time: The high probability of a clinically significant, sudden or life threatening deterioration of the patient's [] system(s) required my full and direct attention, intervention and personal management. The critical care time is as shown. This time is in addition to time spent performing any reported procedures but includes the following: [x] Data and vital sign review and interpretation [x] Patient assessment, examination and intervention [x] Documentation [x] Medication orders and management Critical Care Time (min): 45 Coding Level of Care Code Established Pt Acute Manager Metrology for Chg Fwd Patient Type Established History Comprehensive Exam Comprehensive Medical Decision Making High Complexity Diagnoses Pneumonia due to 2019 novel coronavirus U07.1; J12.82 Acute respiratory failure with hypoxia J96.01 COVID-19 determined by clinical diagnostic criteria U07.1 ARDS (adult respiratory distress syndrome) J80 Rash R21 Time Spent (min) 45
[2020-08-11] MEDS: LORazepam 2 mg/mL INJ 1 mL 0.5 MG IVP (22:24)
[2020-08-11] MEDS: FUROsemide 10 mg/mL SDV 2mL 20 MG IVP (22:24)
[2020-08-11] MEDS: enoxaparin 40 mg/0.4 mL Syringe SUBCUT (22:57)
[2020-08-12] VITALS (49 sets, daily range): BP systolic 95–145; BP diastolic 66–96; PULSE 54–88; RESP 14–32; TEMP 36.6–36.9; O2SAT 85–96
[2020-08-12 05:08] LABS: Basophils % 0.2 %; Eosinophils % 0.6 %; Hematocrit 43.2 % (42.0-52.0); Hemoglobin 14.5 g/dL (11.7-16.6); Lymphocytes # 1.4 10^3/uL (0.8-4.8); Lymphocytes % 21.6 %; Mean Corpuscular HGB Conc 33.6 g/dL (30.0-36.0); Mean Corpuscular Hemoglobin 30.7 pg (28.0-34.0); Mean Corpuscular Volume 91.5 fL (80-94); Monocytes # 0.5 10^3/uL (0.2-0.9); Monocytes % 7.5 %; Neutrophils # 4.36 10^3/uL (1.8-7.7); Neutrophils % 69.3 %; Nucleated Red Blood Cells % 0 %; Platelet Count 357 10^3/cmm (130-400); Red Blood Count 4.72 10^6/uL (4.1-5.3); Red Cell Distribution Width 12.1 % (12.1-15.1); White Blood Count 6.3 10^3/uL (4.0-10.0)
[2020-08-12 05:22] LABS: Lactate (Lactic Acid level) 1.5 mmol/L (0.5-2.2)
--- NOTE | 2020-08-12 05:25 | PC.NURSE ---
Shift Summary Patient was very anxious in the beginning of the night, was thinking about leaving AMA when an admit came in next door. Patient received a dose of ativan and has since improved. Patient wants to get better faster than his body will allow and is ready to go home.Pateint is not having any fevers, his labs are all WNL and he is not complaining of any pain. Patient is hoping to get a different form oxygen delivery soon. I think he is just getting burnt out on being home . Patient has stable vital signs and is appropriate and cooperative now that I have talked him down and into saying. Patient is on lactulose for a Bowel movement and he was able to have a small one last night.
[2020-08-12 05:36] LABS: NT Pro B Type Natriuretic Pept 5 pg/mL (0-125); Procalcitonin 0.06 ng/mL (0-0.5)
[2020-08-12 05:49] LABS: Alanine Aminotransferase 127 U/L (0-41); Albumin Level 3.4 g/dL (3.5-5.2); Alkaline Phosphatase 60 IU/L (40-130); Anion Gap 12.9 (5-19); Aspartate Amino Transferase 67 U/L (0-40); Blood Urea Nitrogen 21 mg/dL (6-20); C Reactive Protein 4.8 mg/L (0.0-4.9); Calcium 8.1 mg/dL (8.5-10.5); Carbon Dioxide 27 mmol/L (22-29); Chloride 100 mmol/L (98-107); Creatine Phosphokinase 103 U/L (39-308); Globulin 2.5 g/dL (1.3-4.6); Glomerular Filtration Rate 115.4 mL/min (90-130); Glucose 86 mg/dL (65-115); Magnesium 2.2 mg/dL (1.7-2.3); Osmolality Calculated 284 mOsm/kg (285-295); Phosphorus 3.5 mg/dL (2.5-4.5); Potassium 3.9 mmol/L (3.5-5.1); Sodium 136 mmol/L (136-145); Total Bilirubin 0.5 mg/dL (0.15-1.2); Total Protein 5.9 g/dL (6.6-8.7)
--- NOTE | 2020-08-12 06:00 | ECG_ITS ---
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 Measurements Intervals [place] Rate: 65 P: MN: QRS: 34 QRSD: 102 T: 54 QT: 427 QTc: 446 Interpretive Statements SINUS RHYTHM Compared to ECG 08/11/2020 04:25:15 NO SIGNIFICANT CHANGES Electronically Signed On 08-12-2020 20:38:59 CDT by Teddy Rico M.D. [id number]
[2020-08-12 06:04] LABS: Ferritin 1900 ng/mL (30-400)
[2020-08-12] MEDS: cefTRIAXone 1,000 MG in sodium chloride 0.9% (plus) 50 ML 100 MG IV (08:22)
[2020-08-12] MEDS: zinc gluconate 50 mg Tablet PO (08:23)
[2020-08-12] MEDS: ascorbic acid 500 mg Tablet PO ×2 (08:23→17:57)
[2020-08-12] MEDS: dexamethasone 4 mg/mL INJ 6 MG IVP (08:23)
[2020-08-12] MEDS: cholecalciferol (vitamin D3) 1,000 unit Tablet 1000 UNIT PO (08:23)
[2020-08-12 08:45] LABS: Glucose Point of Care 98 mg/dL (70-110)
--- NOTE | 2020-08-12 08:54 | XR_ITS ---
WS: [id number] Portable AP upright chest, 08/12/2020 Clinical Data: change in condition Comparison: Portable chest, 08/10/2020 Findings: The patchy peripheral opacities have not changed. The heart size remains normal. No nodules or masses are seen. There is no pneumothorax. Monitor leads are on the chest wall. XR/XR chest 1V portable [id number] Impression: No change in bilateral pulmonary opacities.
--- NOTE | 2020-08-12 09:06 | PC.CHAP ---
Pastoral Care Encounter/Spiritual Assessment Type of Contact [] Declined echo vascular technologist visit [] Patient/Family/Request visit [] Outpatient visit [] Follow-up visit [] Physician referral [] Code/Alert []x Routine visit [] Staff referral [] Actively dying [] Patient sleeping [] Family support [] [] Out of room [] Palliative care [] [x] Receiving care in room [] Pre-surgical visit [] Trauma [] Long length of stay [x] ICU visit [] Other: Relational/Emotional Strength [] Patient feels connected with others/family/visitors/staff [] Distress [] Loneliness/isolation [] Abandonment Spirituality of Patient [] Person of [place] [] Attends Taoism of their [place] [] Believes in Prayer [] Reads Bible or Oriental Orthodox materials [] There are Spiritual issues to be addressed Bob[employer]er Interventions [x] Prayer [] Active listening [] Non-anxious presence [] Spiritual/emotional support [] Crisis/trauma care [] Spiritual counseling [] Bereavement support [] Provided bereavement packet [] Provided Bible/devotional materials [] Provided toy/stuffed animal, coloring book to patient or family member [] Provided Communion [] Anointing/[place] [] Salvation [x] Completed spiritual assessment [] Other: Impact on Illness or Injury [] Angry [] Fearful [] Anxious [] Often cries [] Exhaustion [] Unable to work [] Unable to attend confucianist [] Unable to walk/stand [] Unable to read [] Unable to drive [] Unable to eat/drink [] Unable to sleep [] Unable to be with family [] Patient intubated [] Other: Summary Time spent with patient
[2020-08-12] MEDS: azithromycin 500 MG in sodium chloride 0.9% 250 ML 250 MG IV (09:32)
--- NOTE | 2020-08-12 09:46 | PC.NURSE ---
Assisted pt to chair. Pt c/o wooziness , HR started decreasing into 40's. O2 sat in mid 80's on HFNC. Pt became diaphoretic and then slightly unresponsive with a shaking movement noted to upper extremities. Pt assisted quickly back into bed, blood glucose checked, 98. Dr. Adams at bedside to assess pt. CXR ordered. Pt requested to go to BSC d/t c/o BM. Pt assisted onto BSC, VS improving. Pt had large BM. States that he feels much better . Assisted back into bed, No other issues, HFNC had been increased to 100%. RT to adjust per orders. Will monitor.
--- NOTE | 2020-08-12 11:18 | PC.NURSE ---
Pt resting in bed. VSS at this time. No issues noted. FiO2 decreased to 75% per RT.
--- NOTE | 2020-08-12 12:39 | PM.PN ---
Subjective Subjective: Interval history: - Patient seen at bedside in the morning -FiO2 down to 63% saturating 93% -No new complaints -He was made to sit out of bed to chair suddenly became bradycardic and heart rate dropped and Patient felt dizzy. Immediately was transferred onto the bed and his dizziness resolved and heart rate dropped to 70s but sats mid 80s. He had a bowel movement following this episode after which he felt better -Labs and imaging reviewed and pertinent findings incorporated in assessment and plan Medications: Reviewed: Yes Vitals/I&O/Wt Last Vital Signs Temp 97.8 F 08/12/20 11:00 Pulse 78 08/12/20 11:27 Resp 20 H 08/12/20 11:27 BP 95/79 08/12/20 11:00 Pulse Ox 93 08/12/20 11:27 08/11/20 08/12/20 08/12/20 22:59 06:59 14:59 Intake Total 940 / 2200 1020 / 1020 Output Total 1350 / 1600 550 / 2150 475 / 475 Balance -410 / 600 -550 / 50 545 / 545 Physical Exam Narrative: EXAM NARRATIVE: General: alert, NAD HEENT: conj clear, EOMI, PERRL, mmm, Neck: supple, no meningismus Heme: no cervical LAP Pulmonary: CTAB, no wheezing, rhonchi, crackles Cardiovascular: rrr, nl s1s2, no mrg Abdomen: Nonpruritic, macular rash on abdomen, nonblanching, soft, nt, nd, no r/g, bs+ Extremities: pulses +, no edema, no c/c : no CVA tenderness Skin: intact, no rash MSK: no back or neck pain Neurologic: grossly intact Data : 08/12/20 04:40 08/12/20 04:40 Other Labs: Laboratory Results WBC 6.3 10^3/uL (4.0-10.0) 08/12/20 04:40 RBC 4.72 10^6/uL (4.1-5.3) 08/12/20 04:40 Hgb 14.5 g/dL (11.7-16.6) 08/12/20 04:40 Hct 43.2 % (42.0-52.0) 08/12/20 04:40 MCV 91.5 fL (80-94) 08/12/20 04:40 MCH 30.7 pg (28.0-34.0) 08/12/20 04:40 MCHC 33.6 g/dL (30.0-36.0) 08/12/20 04:40 RDW 12.1 % (12.1-15.1) 08/12/20 04:40 Plt Count 357 10^3/cmm (130-400) 08/12/20 04:40 MPV 9.0 fL (7.4-10.4) 08/12/20 04:40 Neut % (Auto) 69.3 % 08/12/20 04:40 Lymph % (Auto) 21.6 % 08/12/20 04:40 [place] % (Auto) 7.5 % 08/12/20 04:40 Eos % (Auto) 0.6 % 08/12/20 04:40 Baso % (Auto) 0.2 % 08/12/20 04:40 Neut # (Auto) 4.36 10^3/uL (1.8-7.7) 08/12/20 04:40 Lymph # (Auto) 1.4 10^3/uL (0.8-4.8) 08/12/20 04:40 [place] # (Auto) 0.5 10^3/uL (0.2-0.9) 08/12/20 04:40 Eos # (Auto) 0.0 10^3/uL (0.0-0.8) 08/12/20 04:40 Baso # (Auto) 0.0 10^3/uL (0.0-0.1) 08/12/20 04:40 Nucleated RBC % (auto) 0 % 08/12/20 04:40 Nucleated RBCs # 0.0 /100WBC 08/12/20 04:40 ESR 24 mm/hr (0-10) H 08/11/20 05:07 PT 14.60 SECONDS (12.1-14.9) 08/12/20 04:40 INR 1.10 (0.8-1.2) 08/12/20 04:40 Fibrinogen 489 mg/dL (174-498) 08/07/20 18:21 D-Dimer 0.46 ug/mIFEU (0-0.59) 08/11/20 05:07 Specimen Type Arterial 08/11/20 04:28 Sample Site Radial, right 08/11/20 04:28 ABG pH 7.55 (7.35-7.45) H 08/11/20 04:28 ABG pCO2 28.6 mmHg (35-45) L 08/11/20 04:28 ABG pO2 49.1 mmHg (80.0-100.0) L 08/11/20 04:28 ABG HCO3 25.2 mmol/L (22-26) 08/11/20 04:28 ABG Base Excess 3.9 mmol/L (-2.0-2.0) H 08/11/20 04:28 Paul Test Pos 08/11/20 04:28 Hematocrit 46.5 % (42-52) 08/11/20 04:28 O2 Delivery Device Hhfnc 08/11/20 04:28 O2 Liters/Min 45.0 % 08/11/20 04:28 FiO2 52.0 % 08/11/20 04:28 Nurse Case Management ID Posjo 08/11/20 04:28 Sodium 136 mmol/L (136-145) 08/12/20 04:40 Potassium 3.9 mmol/L (3.5-5.1) 08/12/20 04:40 Chloride 100 mmol/L (98-107) 08/12/20 04:40 Carbon Dioxide 27 mmol/L (22-29) 08/12/20 04:40 Anion Gap 12.9 (5-19) 08/12/20 04:40 BUN 21 mg/dL (6-20) H 08/12/20 04:40 Creatinine 0.7 mg/dL (0.7-1.2) 08/12/20 04:40 GFR Calculation 115.4 mL/min (90-130) 08/12/20 04:40 Glucose 86 mg/dL (65-115) 08/12/20 04:40 POC Glucose 98 mg/dL (70-110) 08/12/20 08:39 Calculated Osmolality 284 mOsm/kg (285-295) L 08/12/20 04:40 Lactic Acid 1.1 mmol/L (0.5-2.2) 08/07/20 18:21 Lactate 1.5 mmol/L (0.5-2.2) 08/12/20 04:40 Calcium 8.1 mg/dL (8.5-10.5) L 08/12/20 04:40 Phosphorus 3.5 mg/dL (2.5-4.5) 08/12/20 04:40 Magnesium 2.2 mg/dL (1.7-2.3) 08/12/20 04:40 Ferritin 1900 ng/mL (30-400) H 08/12/20 04:40 Total Bilirubin 0.5 mg/dL (0.15-1.2) 08/12/20 04:40 AST 67 U/L (0-40) H 08/12/20 04:40 ALT 127 U/L (0-41) H 08/12/20 04:40 Alkaline Phosphatase 60 IU/L (40-130) 08/12/20 04:40 Lactate Dehydrogenase 375 U/L (135-225) H 08/08/20 05:10 Creatine Kinase 103 U/L (39-308) 08/12/20 04:40 C-Reactive Protein 4.8 mg/L (0.0-4.9) 08/12/20 04:40 NT-Pro-B Natriuret Pep 5 pg/mL (0-125) 08/12/20 04:40 Total Protein 5.9 g/dL (6.6-8.7) L 08/12/20 04:40 Albumin 3.4 g/dL (3.5-5.2) L 08/12/20 04:40 Globulin 2.5 g/dL (1.3-4.6) 08/12/20 04:40 Procalcitonin 0.06 ng/mL (0-0.5) 08/12/20 04:40 Impressions Chest CTA 08/09/20 09:58 IMPRESSION: 1. Proximal main pulmonary arteries are normal. No suspicious filling defects to indicate pulmonary embolus. 2. Hazy bilateral groundglass infiltrates compatible with COVID 19 pneumonia. 3. Partial airspace consolidation left lower lobe. 4. Small esophageal hiatal hernia. Chest X-Ray 08/12/20 08:54 Impression: No change in bilateral pulmonary opacities. A&P Assessment and plan (1) Pneumonia due to 2019 novel coronavirus: Status: Acute (2) Acute respiratory failure with hypoxia: Status: Acute (3) COVID-19 determined by clinical diagnostic criteria: Status: Acute (4) ARDS (adult respiratory distress syndrome): Status: Acute (5) Rash: Status: Acute #Acute respiratory failure with hypoxia due to ARDS secondary to COVID-19 pneumonia -Reported contracted symptoms 07/31/2020 -Covid PCR positive -CTA 08/09/2020-ruled out PE. Hazy bilateral groundglass infiltrates compatible with COVID 19 pneumonia.Partial airspace consolidation left lower lobe. -Echo 08/09/2020 ejection fraction 66% with no regional motion abnormalities -ABG 7.5 07/09//on HFNC 45 L and 52 %- 08/11/20 -Titrate down FIO2 with target sats > 90% -Afebrile,Normal WBC, procalcitonin 0.06 -Improved ferritin, improving CRP, ESR, [id number] every 48 hour -Since 08/07/2020 on remdesivir and dexamethasone 6 mg IVP daily -Received 1 dose of Tocilizumab on 08/09/2020 -Also covered with Rocephin and azithromycin day 3-to complete 7 days -Continue Advair 1 puff twice daily; albuterol 2 puffs every 4 as needed for shortness of breath; continue incentive spirometry and flutter valve and out of bed to chair -Lovenox 40 daily for DVT prophylaxis -CK 367 >> 155 > 103 normal renal functions, electrolytes, adequate urine output-overall +3 L positive since admission-continue Lasix 20 mg IV as needed to keep net negative to even -Elevated LFTs-likely secondary to COVID-19 pneumonia-monitor -Sugars well controlled -Regular diet -Continue close clinical monitoring of clinical condition, respiratory status with saturations and hemodynamics -Full code -Prognosis-guarded Medical condition, plan of care and prognosis everything explained in detail to the patient. He verbalized understanding and agreed with the plan. Recommendations conveyed to hospitalist, RN, RT covering the patient Attestations Medical Necessity Statement*: Acute hypoxic respiratory failure secondary to ARDS due to COVID-19 pneumonia currently on high flow nasal cannula and requires close monitoring for respiratory status and saturations Time Spent in Patient Care: Greater than 35 minutes (>than 50% of time spent in counselling and/or direct pt care on unit). Critical Care Time: The high probability of a clinically significant, sudden or life threatening deterioration of the patient's [] system(s) required my full and direct attention, intervention and personal management. The critical care time is as shown. This time is in addition to time spent performing any reported procedures but includes the following: [x] Data and vital sign review and interpretation [x] Patient assessment, examination and intervention [x] Documentation [x] Medication orders and management Critical Care Time (min): 45 Coding Level of Care Code Established Pt Acute Oracle Erp Developer for Chg Fwd Patient Type Established History Comprehensive Exam Comprehensive Medical Decision Making High Complexity Diagnoses Pneumonia due to 2019 novel coronavirus U07.1; J12.82 Acute respiratory failure with hypoxia J96.01 COVID-19 determined by clinical diagnostic criteria U07.1 ARDS (adult respiratory distress syndrome) J80 Rash R21 Time Spent (min) 45
--- NOTE | 2020-08-12 14:39 | P.PN_ITS ---
Subjective Subjective: Interval history: Patient had an episode of anxiety overnight, improved with Ativan, currently he tells me is doing well, has not had a bowel movement, he was kept awake overnight, but the Ativan did help, no fevers, continues to have a productive cough Vitals/I&O/Wt Last Vital Signs Temp 97.8 F 08/12/20 11:00 Pulse 68 08/12/20 14:00 Resp 16 08/12/20 13:00 BP 112/71 08/12/20 13:00 Pulse Ox 91 08/12/20 13:00 08/11/20 08/12/20 08/12/20 22:59 06:59 14:59 Intake Total 940 / 2200 1020 / 1020 Output Total 1350 / 1600 550 / 2150 475 / 475 Balance -410 / 600 -550 / 50 545 / 545 Physical Exam Const: COMMON NORMALS: no acute distress and patient oriented x3 Neck/C-Spine: COMMON NORMALS: no JVD Resp: COMMON NORMALS: normal respiratory effort, No retractions, No use of accessory muscles and clear to auscultation bilaterally AUSCULTATION: clear to auscultation bilaterally Cardio: COMMON NORMALS: no JVD, regular rate, regular rhythm, S1 normal heart sound present and S2 normal heart sound present RATE: regular rate RHYTHM: regular rhythm HEART SOUNDS: S1 normal heart sound present and S2 normal heart sound present GI: COMMON NORMALS: Normal to inspection, nondistended, normoactive bowel ion nds present, Soft to palpation and non-tender PALPATION: Yes Soft to palpation Extremity: COMMON NORMALS: no pedal edema Neuro: COMMON NORMALS: patient oriented x3 Psych: COMMON NORMALS: mental status grossly normal Data : 08/12/20 04:40 08/12/20 04:40 A&P Assessment and plan (1) Acute respiratory failure with hypoxia: Acute Respiratory failure with hypoxia secondary to Covid pneumonia: Currently in the ICU, on high flow oxygen, wean oxygen as tolerated, Precedex drip for anxiety Xray chest : Asymmetric left lower lobe patchy ground-glass opacities Currently on COVID -19 protocol (remdesivir 5-day course, dexamethasone 10-day course) Trend inflammatory markers ( ESR, CRP, D dimer, ferritin ) Zinc 50 mg p.o. daily Ascorbic acid 500 mg q12 h daily vitamin D Ceftriaxone 1 gm q24 h daily Azithromycon 500 mg I.V Daily Albuterol, Advair Budesonide 0.5 mg Inhalation BID Status post 1 dose Tocilizumab 08/01/2020 Continue Decadron 6 mg IV push daily Finished remdesivir course 08/11/2020 pulmonary has been consulted Incentive spirometer and flutter valve Up out of bed Lasix as needed (to maintain fluid neutral state) DVT prophylaxis Lovenox CT angiogram of the chest negative for evidence of pulmonary midline Cardiac echocardiogram EF 66%, no regional wall motion abnormalities Full code Lovenox for DVT prophylaxis Plan for today, up into a chair, continue steroids, continue antibiotics Status: Acute (2) COVID-19 determined by clinical diagnostic criteria: Status: Acute (3) Rash: Nonpruritic, macular rash on abdomen, nonblanching, continue to monitor No known penicillin allergy No lip or tongue swelling Status: Acute Additional A&P Information Full code Cardiac diet DVT prophylaxis Lovenox Attestations Medical Necessity Statement*: Patient requires hospitalization for acute respiratory failure secondary COVID-19 Coding Level of Care Code Acute Teacher Of The Deaf/Hard Of Hearing for Allison Huff Diagnoses Acute respiratory failure with hypoxia J96.01 COVID-19 determined by clinical diagnostic criteria U07.1 Rash R21
[2020-08-12] MEDS: LORazepam 2 mg/mL INJ 1 mL 0.5 MG IVP (20:20)
[2020-08-12] MEDS: enoxaparin 40 mg/0.4 mL Syringe SUBCUT (23:33)
[2020-08-13] VITALS (53 sets, daily range): BP systolic 102–155; BP diastolic 69–100; PULSE 55–89; RESP 12–25; TEMP 36.6–37.1; O2SAT 84–94
[2020-08-13 04:05] LABS: Basophils % 0.2 %; Eosinophils # 0.1 10^3/uL (0.0-0.8); Eosinophils % 1.5 %; Hematocrit 41.8 % (42.0-52.0); Hemoglobin 13.8 g/dL (11.7-16.6); Lymphocytes # 1.2 10^3/uL (0.8-4.8); Lymphocytes % 14.9 %; Mean Corpuscular Hemoglobin 30.4 pg (28.0-34.0); Mean Corpuscular Volume 92.1 fL (80-94); Monocytes # 0.6 10^3/uL (0.2-0.9); Monocytes % 7.6 %; Neutrophils % 74.5 %; Nucleated Red Blood Cells % 0 %; Platelet Count 374 10^3/cmm (130-400); Red Blood Count 4.54 10^6/uL (4.1-5.3); Red Cell Distribution Width 12.3 % (12.1-15.1); White Blood Count 8.2 10^3/uL (4.0-10.0)
[2020-08-13 04:18] LABS: Alanine Aminotransferase 99 U/L (0-41); Albumin Level 3.3 g/dL (3.5-5.2); Alkaline Phosphatase 58 IU/L (40-130); Aspartate Amino Transferase 39 U/L (0-40); Blood Urea Nitrogen 19 mg/dL (6-20); C Reactive Protein 2.5 mg/L (0.0-4.9); Carbon Dioxide 28 mmol/L (22-29); Chloride 100 mmol/L (98-107); Globulin 2.4 g/dL (1.3-4.6); Glomerular Filtration Rate 115.4 mL/min (90-130); Glucose 91 mg/dL (65-115); Magnesium 2.3 mg/dL (1.7-2.3); Osmolality Calculated 284 mOsm/kg (285-295); Phosphorus 3.4 mg/dL (2.5-4.5); Sodium 136 mmol/L (136-145); Total Bilirubin 0.5 mg/dL (0.15-1.2); Total Protein 5.7 g/dL (6.6-8.7)
[2020-08-13 04:29] LABS: NT Pro B Type Natriuretic Pept 5 pg/mL (0-125); Procalcitonin 0.05 ng/mL (0-0.5)
[2020-08-13 04:39] LABS: Creatine Phosphokinase 63 U/L (39-308)
--- NOTE | 2020-08-13 05:11 | PC.NURSE ---
Shift Summary Patient was very anxious in the beginning of the night, but after a dose of Ativan he has been resting comfortably, his oxygen drops with any activity but only slightly to the 86 87% range, He is able to recover on his own. Patient has been pleasant and cooperative, vitals are all stable, and he is ready to get off the High flow but his numbers are not quite good enough for that yet. Will continue to monitor and assist with his anxiety and encourage him up to the chair each day.
--- NOTE | 2020-08-13 07:00 | XR_ITS ---
WS: [id number] Portable AP upright chest, 08/13/2020 Clinical Data: sob Comparison: Portable chest, 08/12/2020 Findings: Bilateral patchy pulmonary opacities remain the same. The heart is normal. No pneumothorax is noted. Monitor leads are on the chest wall. XR/XR chest 1V portable [id number] Impression: No change in bilateral pulmonary opacities.
[2020-08-13] MEDS: ascorbic acid 500 mg Tablet PO ×2 (08:21→17:14)
[2020-08-13] MEDS: cholecalciferol (vitamin D3) 1,000 unit Tablet 1000 UNIT PO (08:21)
[2020-08-13] MEDS: zinc gluconate 50 mg Tablet PO (08:21)
[2020-08-13] MEDS: dexamethasone 4 mg/mL INJ 6 MG IVP (08:22)
[2020-08-13] MEDS: cefTRIAXone 1,000 MG in sodium chloride 0.9% (plus) 50 ML 100 MG IV (08:22)
[2020-08-13] MEDS: azithromycin 500 MG in sodium chloride 0.9% 250 ML 250 MG IV (08:57)
--- NOTE | 2020-08-13 09:07 | PC.NURSE ---
Report received. Assessment completed. No c/o pain or SOB. HFNC in use. Reduced O2 level per RT. Uses urinal for elimination. Will monitor.
[2020-08-13] MEDS: FUROsemide 10 mg/mL SDV 4mL 40 MG IVP (09:18)
--- NOTE | 2020-08-13 10:19 | PC.NURSE ---
Pt appeared to have vasovagal episode after transferring to chair. Pt c/o 'feeling pekid Vitals signs were stable then became bradycardic, hypotensive, hypoxic. Assisted back to bed per this nurse. Pt diaphoretic. Pulled up by staff in bed. Vitals stabalized. O2 increased to 100% d/t sats in 70's. Notified Dr. Adams. Will monitor.
--- NOTE | 2020-08-13 13:14 | PC.NURSE ---
Resting in bed. No issues noted at this time. AAOx4, VSS. Will monitor.
--- NOTE | 2020-08-13 14:04 | PC.NURSE ---
Pt sitting on side of bed, approximately 30 minutes at a time. Tolerating well.
[2020-08-13] MEDS: acetaminophen 500 mg Tablet PO (17:23)
--- NOTE | 2020-08-13 17:56 | ECG_ITS ---
[facility] Test Date: 2020-08-13 Pat Name: Huber Licona Department: Room: [facility] Gender: Male Channel Process Supervisor: : [id number] Requested By: Kevin Parr Order Number: [id number] Miguelangel MD: Teddy Rico M.D. Measurements Intervals [place] Rate: 65 P: 51 NV: 203 QRS: 21 QRSD: 101 T: 31 QT: 393 QTc: 410 Interpretive Statements SINUS RHYTHM Compared to ECG 08/12/2020 06:30:47 No significant changes Electronically Signed On 08-13-2020 21:32:08 CDT by Teddy Rico M.D. [id number]
--- NOTE | 2020-08-13 17:56 | PM.PN ---
Subjective Subjective: Interval history: Yesterday when patient got up to the bathroom, he wanted to have a bowel movement, when he felt lightheaded, dizzy, had episodes of sinus bradycardia, resolved thereafter, overnight he did have episodes of anxiety, improving with Ativan, this morning he denies any shortness of breath, no fevers, no chills, no nausea, no vomiting, no chest pain, palpitations. Later on this morning, patient not got up to urinate, after his Lasix, he did have an episode of lightheadedness, dizziness, episode of sinus bradycardia, resolved quickly after, Medications: Reviewed: Yes Vitals/I&O/Wt Last Vital Signs Temp 98.3 F 08/13/20 16:00 Pulse 63 08/13/20 17:00 Resp 19 H 08/13/20 17:00 BP 124/90 08/13/20 17:00 Pulse Ox 91 08/13/20 17:00 08/13/20 08/13/20 08/13/20 06:59 14:59 22:59 Intake Total 400 / 1900 900 / 900 240 / 1140 Output Total 1200 / 1200 250 / 1450 Balance 400 / 625 -300 / -300 -10 / -310 Physical Exam Const: COMMON NORMALS: no acute distress and patient oriented x3 Resp: COMMON NORMALS: normal respiratory effort, No retractions, No use of accessory muscles and clear to auscultation bilaterally AUSCULTATION: clear to auscultation bilaterally Cardio: COMMON NORMALS: regular rate, regular rhythm, S1 normal heart sound present and S2 normal heart sound present RATE: regular rate RHYTHM: regular rhythm HEART SOUNDS: S1 normal heart sound present and S2 normal heart sound present GI: COMMON NORMALS: Normal to inspection, nondistended, normoactive bowel sounds present, Soft to palpation and non-tender PALPATION: Yes Soft to palpation Extremity: COMMON NORMALS: no pedal edema Neuro: COMMON NORMALS: patient oriented x3 Psych: COMMON NORMALS: mental status grossly normal Data : 08/13/20 03:15 08/13/20 03:15 A&P Assessment and plan (1) Acute respiratory failure with hypoxia: Acute Respiratory failure with hypoxia secondary to Covid pneumonia: Currently in the ICU, on high flow oxygen, wean oxygen as tolerated, Precedex drip for anxiety Xray chest : Asymmetric left lower lobe patchy ground-glass opacities Currently on COVID -19 protocol (remdesivir 5-day course, dexamethasone 10-day course) Trend inflammatory markers ( ESR, CRP, D dimer, ferritin ) Zinc 50 mg p.o. daily Ascorbic acid 500 mg q12 h daily vitamin D Ceftriaxone 1 gm q24 h daily Azithromycon 500 mg I.V Daily Albuterol, Advair Budesonide 0.5 mg Inhalation BID Status post 1 dose Tocilizumab 08/01/2020 All Decadron Finished remdesivir course 08/11/2020 pulmonary has been consulted Incentive spirometer and flutter valve Up out of bed Lasix as needed (to maintain fluid neutral state) DVT prophylaxis Lovenox CT angiogram of the chest negative for evidence of pulmonary midline Cardiac echocardiogram EF 66%, no regional wall motion abnormalities For vasovagal response, will order troponin series, EKGs, BNP up out of bed with assistance Will discuss with cardiology Full code Lovenox for DVT prophylaxis Plan for today, up into a chair, hold steroids, continue antibiotics, monitor vasovagal response Status: Acute (2) COVID-19 determined by clinical diagnostic criteria: Status: Acute (3) Rash: Nonpruritic, macular rash on abdomen, nonblanching, continue to monitor No known penicillin allergy No lip or tongue swelling Status: Acute (4) Vasovagal near syncope: Status: Acute Additional A&P Information Full code Cardiac diet DVT prophylaxis Lovenox Attestations Medical Necessity Statement*: Patient requires hospitalization for acute respiratory failure secondary to Covid19 Coding Level of Care Code Acute Operating Cost Clerk for [facility] Diagnoses Acute respiratory failure with hypoxia J96.01 COVID-19 determined by clinical diagnostic criteria U07.1 Rash R21 Vasovagal near syncope R55
--- NOTE | 2020-08-13 18:42 | PC.NURSE ---
Pt sitting up in bed. Remains anxious at times. Spoke with MD and got new order for anxiolytic. Educated pt on new med. Verbalizes understanding. Will monitor.
--- NOTE | 2020-08-13 18:54 | PM.PN ---
Subjective Subjective: Interval history: - clinically stable with no change in FIO2 settings - received a dose of lasix and while trying to urinate had another episode, just like yesterday, bradycardia & dizziness for few seconds resolved on its own - appeared vasovagal - We will DC lasix - labs and imagning reviewed Medications: Reviewed: Yes Vitals/I&O/Wt Last Vital Signs Temp 98.3 F 08/13/20 16:00 Pulse 63 08/13/20 17:00 Resp 19 H 08/13/20 17:00 BP 124/90 08/13/20 17:00 Pulse Ox 91 08/13/20 17:00 08/13/20 08/13/20 08/13/20 06:59 14:59 22:59 Intake Total 400 / 1900 900 / 900 240 / 1140 Output Total 1200 / 1200 250 / 1450 Balance 400 / 625 -300 / -300 -10 / -310 Physical Exam Narrative: EXAM NARRATIVE: General: alert, NAD HEENT: conj clear, EOMI, PERRL, mmm, Neck: supple, no meningismus Heme: no cervical LAP Pulmonary: CTAB, no wheezing, rhonchi, crackles Cardiovascular: rrr, nl s1s2, no mrg Abdomen: improving Nonpruritic, macular rash on abdomen, nonblanching, soft, nt, nd, no r/g, bs+ Extremities: pulses +, no edema, no c/c : no CVA tenderness Skin: intact, no rash MSK: no back or neck pain Neurologic: grossly intact Data : 08/13/20 03:15 08/13/20 03:15 Other Labs: Laboratory Results WBC 8.2 10^3/uL (4.0-10.0) 08/13/20 03:15 RBC 4.54 10^6/uL (4.1-5.3) 08/13/20 03:15 Hgb 13.8 g/dL (11.7-16.6) 08/13/20 03:15 Hct 41.8 % (42.0-52.0) L 08/13/20 03:15 MCV 92.1 fL (80-94) 08/13/20 03:15 MCH 30.4 pg (28.0-34.0) 08/13/20 03:15 MCHC 33.0 g/dL (30.0-36.0) 08/13/20 03:15 RDW 12.3 % (12.1-15.1) 08/13/20 03:15 Plt Count 374 10^3/cmm (130-400) 08/13/20 03:15 MPV 9.0 fL (7.4-10.4) 08/13/20 03:15 Neut % (Auto) 74.5 % 08/13/20 03:15 Lymph % (Auto) 14.9 % 08/13/20 03:15 [place] % (Auto) 7.6 % 08/13/20 03:15 Eos % (Auto) 1.5 % 08/13/20 03:15 Baso % (Auto) 0.2 % 08/13/20 03:15 Neut # (Auto) 6.10 10^3/uL (1.8-7.7) 08/13/20 03:15 Lymph # (Auto) 1.2 10^3/uL (0.8-4.8) 08/13/20 03:15 [place] # (Auto) 0.6 10^3/uL (0.2-0.9) 08/13/20 03:15 Eos # (Auto) 0.1 10^3/uL (0.0-0.8) 08/13/20 03:15 Baso # (Auto) 0.0 10^3/uL (0.0-0.1) 08/13/20 03:15 Nucleated RBC % (auto) 0 % 08/13/20 03:15 Nucleated RBCs # 0.0 /100WBC 08/13/20 03:15 ESR 24 mm/hr (0-10) H 08/11/20 05:07 PT 14.60 SECONDS (12.1-14.9) 08/12/20 04:40 INR 1.10 (0.8-1.2) 08/12/20 04:40 Fibrinogen 489 mg/dL (174-498) 08/07/20 18:21 D-Dimer 0.46 ug/mIFEU (0-0.59) 08/11/20 05:07 Specimen Type Arterial 08/11/20 04:28 Sample Site Radial, right 08/11/20 04:28 ABG pH 7.55 (7.35-7.45) H 08/11/20 04:28 ABG pCO2 28.6 mmHg (35-45) L 08/11/20 04:28 ABG pO2 49.1 mmHg (80.0-100.0) L 08/11/20 04:28 ABG HCO3 25.2 mmol/L (22-26) 08/11/20 04:28 ABG Base Excess 3.9 mmol/L (-2.0-2.0) H 08/11/20 04:28 Paul Test Pos 08/11/20 04:28 Hematocrit 46.5 % (42-52) 08/11/20 04:28 O2 Delivery Device Hhfnc 08/11/20 04:28 O2 Liters/Min 45.0 % 08/11/20 04:28 FiO2 52.0 % 08/11/20 04:28 Mileage Clerk ID Posjo 08/11/20 04:28 Sodium 136 mmol/L (136-145) 08/13/20 03:15 Potassium 4.0 mmol/L (3.5-5.1) 08/13/20 03:15 Chloride 100 mmol/L (98-107) 08/13/20 03:15 Carbon Dioxide 28 mmol/L (22-29) 08/13/20 03:15 Anion Gap 12.0 (5-19) 08/13/20 03:15 BUN 19 mg/dL (6-20) 08/13/20 03:15 Creatinine 0.7 mg/dL (0.7-1.2) 08/13/20 03:15 GFR Calculation 115.4 mL/min (90-130) 08/13/20 03:15 Glucose 91 mg/dL (65-115) 08/13/20 03:15 POC Glucose 98 mg/dL (70-110) 08/12/20 08:39 Calculated Osmolality 284 mOsm/kg (285-295) L 08/13/20 03:15 Lactic Acid 1.1 mmol/L (0.5-2.2) 08/07/20 18:21 Lactate 1.5 mmol/L (0.5-2.2) 08/12/20 04:40 Calcium 8.0 mg/dL (8.5-10.5) L 08/13/20 03:15 Phosphorus 3.4 mg/dL (2.5-4.5) 08/13/20 03:15 Magnesium 2.3 mg/dL (1.7-2.3) 08/13/20 03:15 Ferritin 1900 ng/mL (30-400) H 08/12/20 04:40 Total Bilirubin 0.5 mg/dL (0.15-1.2) 08/13/20 03:15 AST 39 U/L (0-40) 08/13/20 03:15 ALT 99 U/L (0-41) H 08/13/20 03:15 Alkaline Phosphatase 58 IU/L (40-130) 08/13/20 03:15 Lactate Dehydrogenase 375 U/L (135-225) H 08/08/20 05:10 Creatine Kinase 63 U/L (39-308) 08/13/20 03:15 C-Reactive Protein 2.5 mg/L (0.0-4.9) 08/13/20 03:15 NT-Pro-B Natriuret Pep 5 pg/mL (0-125) 08/13/20 03:15 Total Protein 5.7 g/dL (6.6-8.7) L 08/13/20 03:15 Albumin 3.3 g/dL (3.5-5.2) L 08/13/20 03:15 Globulin 2.4 g/dL (1.3-4.6) 08/13/20 03:15 Procalcitonin 0.05 ng/mL (0-0.5) 08/13/20 03:15 Impressions Chest CTA 08/09/20 09:58 IMPRESSION: 1. Proximal main pulmonary arteries are normal. No suspicious filling defects to indicate pulmonary embolus. 2. Hazy bilateral groundglass infiltrates compatible with COVID 19 pneumonia. 3. Partial airspace consolidation left lower lobe. 4. Small esophageal hiatal hernia. Chest X-Ray 08/13/20 07:00 Impression: No change in bilateral pulmonary opacities. A&P Assessment and plan (1) Pneumonia due to 2019 novel coronavirus: Status: Acute (2) Acute respiratory failure with hypoxia: Status: Acute (3) COVID-19 determined by clinical diagnostic criteria: Status: Acute (4) ARDS (adult respiratory distress syndrome): Status: Acute (5) Rash: Status: Acute #Acute respiratory failure with hypoxia due to ARDS secondary to COVID-19 pneumonia -Reported contracted symptoms 07/31/2020 -Covid PCR positive -CTA 08/09/2020-ruled out PE. Hazy bilateral groundglass infiltrates compatible with COVID 19 pneumonia.Partial airspace consolidation left lower lobe.; -Echo 08/09/2020 ejection fraction 66% with no regional motion abnormalities -ABG 7.5 07/09//on HFNC 45 L and 52 %- 08/11/20 - continues to be on same settings -Titrate down FIO2 with target sats > 90% -Afebrile,Normal WBC, procalcitonin 0.06 -Improved ferritin, improving CRP, ESR, [id number] every 48 hour -Since 08/07/2020 on remdesivir and dexamethasone 6 mg IVP daily -Received 1 dose of Tocilizumab on 08/09/2020 -Also covered with Rocephin and azithromycin -to complete 7 days -Continue Advair 1 puff twice daily; albuterol 2 puffs every 4 as needed for shortness of breath; continue incentive spirometry and flutter valve and out of bed to chair -Lovenox 40 daily for DVT prophylaxis -CK 367 >> 155 > 103 normal renal functions, electrolytes, adequate urine output-overall - has brief episodes of vasovagal symptoms - bradycardia and dizziness; continue telemontoring - consult cardiology - Also Dc Lasix and make sure patient is adequately hydrated -monitor electrolytes and correct to keep K > 3.6 and Mg > 2 -Elevated LFTs-likely secondary to COVID-19 pneumonia-monitor -Sugars well controlled -Regular diet -Continue close clinical monitoring of clinical condition, respiratory status with saturations and hemodynamics -Full code -Prognosis-guarded Medical condition, plan of care and prognosis everything explained in detail to the patient. He verbalized understanding and agreed with the plan. Recommendations conveyed to hospitalist, RN, RT covering the patient Attestations Medical Necessity Statement*: Acute hypoxic respiratory failure secondary to ARDS due to COVID-19 pneumonia currently on high flow nasal cannula and requires close monitoring for respiratory status and saturations Time Spent in Patient Care: Greater than 35 minutes (>than 50% of time spent in counselling and/or direct pt care on unit). Critical Care Time: The high probability of a clinically significant, sudden or life threatening deterioration of the patient's [respiratory ] system(s) required my full and direct attention, intervention and personal management. The critical care time is as shown. This time is in addition to time spent performing any reported procedures but includes the following: [x] Data and vital sign review and interpretation [x] Patient assessment, examination and intervention [x] Documentation [x] Medication orders and management Critical Care Time (min): 45 Coding Level of Care Code Established Pt Acute Microcomputer Support Specialist for Chg Fwd Patient Type Established History Comprehensive Exam Comprehensive Medical Decision Making High Complexity Diagnoses Pneumonia due to 2019 novel coronavirus U07.1; J12.82 Acute respiratory failure with hypoxia J96.01 COVID-19 determined by clinical diagnostic criteria U07.1 ARDS (adult respiratory distress syndrome) J80 Rash R21 Time Spent (min) 45
--- NOTE | 2020-08-13 19:56 | ECG_ITS ---
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 Measurements Intervals [place] Rate: 62 P: 26 NM: 202 QRS: 75 QRSD: 107 T: 51 QT: 395 QTc: 402 Interpretive Statements SINUS RHYTHM Compared to ECG 08/13/2020 18:15:22 No significant changes Electronically Signed On 08-13-2020 21:35:44 CDT by Teddy Rico M.D. [id number]
[2020-08-13 20:45] LABS: Troponin(5th) Baseline 10 ng/L (0-15)
[2020-08-13 20:58] LABS: Thyroid Stimulating Hormone 1.35 uIU/mL (0.27-4.20)
[2020-08-13] MEDS: ALPRAZolam 0.5 mg Tablet 0.25 MG PO (21:15)
[2020-08-13 22:45] LABS: Troponin 5 2HR 10.57 ng/L (0-15); Troponin 5 2HR Delta 0.57 ABS# (0-10)
[2020-08-13] MEDS: enoxaparin 40 mg/0.4 mL Syringe SUBCUT (23:37)
--- NOTE | 2020-08-13 23:56 | ECG_ITS ---
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
[2020-08-14] VITALS (35 sets, daily range): BP systolic 93–124; BP diastolic 63–81; PULSE 51–77; RESP 13–23; TEMP 36.7–37.1; O2SAT 87–94
[2020-08-14 02:29] LABS: Basophils % 0.3 %; Eosinophils # 0.2 10^3/uL (0.0-0.8); Eosinophils % 2.4 %; Hematocrit 42.7 % (42.0-52.0); Hemoglobin 14.7 g/dL (11.7-16.6); Lymphocytes # 1.2 10^3/uL (0.8-4.8); Lymphocytes % 11.7 %; Mean Corpuscular HGB Conc 34.4 g/dL (30.0-36.0); Mean Corpuscular Hemoglobin 30.8 pg (28.0-34.0); Mean Corpuscular Volume 89.3 fL (80-94); Mean Platelet Volume 8.9 fL (7.4-10.4); Monocytes # 0.6 10^3/uL (0.2-0.9); Monocytes % 6.3 %; Neutrophils # 7.78 10^3/uL (1.8-7.7); Neutrophils % 77.4 %; Nucleated Red Blood Cells % 0 %; Platelet Count 354 10^3/cmm (130-400); Red Blood Count 4.78 10^6/uL (4.1-5.3); Red Cell Distribution Width 11.9 % (12.1-15.1); White Blood Count 10.1 10^3/uL (4.0-10.0)
[2020-08-14 02:43] LABS: Troponin 5 6HR 10.08 ng/L (0-15); Troponin 5 6HR Delta 0.08 ng/L (0-12)
[2020-08-14 02:45] LABS: Alanine Aminotransferase 98 U/L (0-41); Albumin Level 3.6 g/dL (3.5-5.2); Alkaline Phosphatase 63 IU/L (40-130); Anion Gap 15.2 (5-19); Aspartate Amino Transferase 31 U/L (0-40); Blood Urea Nitrogen 21 mg/dL (6-20); C Reactive Protein 1.6 mg/L (0.0-4.9); Calcium 8.7 mg/dL (8.5-10.5); Carbon Dioxide 25 mmol/L (22-29); Chloride 100 mmol/L (98-107); Globulin 2.1 g/dL (1.3-4.6); Glomerular Filtration Rate 137.9 mL/min (90-130); Glucose 104 mg/dL (65-115); Magnesium 2.2 mg/dL (1.7-2.3); Osmolality Calculated 285 mOsm/kg (285-295); Phosphorus 3.6 mg/dL (2.5-4.5); Potassium 4.2 mmol/L (3.5-5.1); Sodium 136 mmol/L (136-145); Total Bilirubin 0.5 mg/dL (0.15-1.2); Total Protein 5.7 g/dL (6.6-8.7)
[2020-08-14 03:51] LABS: Creatine Phosphokinase 66 U/L (39-308); NT Pro B Type Natriuretic Pept 5 pg/mL (0-125); Procalcitonin 0.04 ng/mL (0-0.5)
--- NOTE | 2020-08-14 06:03 | PC.NURSE ---
Shift Summary Patient is alert and oriented, able to wean a little bit more on his high flow down to 50L and 60%FiO2. Patient has had no fevers and is feeling a lot better tonight. Gave him a dose of xanax at bedtime to help with his anxiety and he tolerated it very well, slept the majority of the night. Patient has had little to no pain. He had a very small bowel movement early on in the night, and tolerated ambulating to bedside commode just fine. Pateint is appropriate and cooperative, hoping to get out of the ICU soon and get well enough to go home.
[2020-08-14] MEDS: zinc gluconate 50 mg Tablet PO (08:30)
[2020-08-14] MEDS: ascorbic acid 500 mg Tablet PO ×2 (08:31→17:52)
[2020-08-14] MEDS: cholecalciferol (vitamin D3) 1,000 unit Tablet 1000 UNIT PO (08:31)
[2020-08-14] MEDS: ALPRAZolam 0.5 mg Tablet 0.25 MG PO ×3 (08:31→21:36)
[2020-08-14] MEDS: azithromycin 500 MG in sodium chloride 0.9% 250 ML 250 MG IV (08:32)
[2020-08-14] MEDS: cefTRIAXone 1,000 MG in sodium chloride 0.9% (plus) 50 ML 100 MG IV (08:37)
--- NOTE | 2020-08-14 10:43 | P.PN_ITS ---
Subjective Subjective: Interval history: This morning patient was seen, he tells me that he is doing well, he is feeling well, no episodes of presyncope or lightheadedness overnight, he does tell me that he is quite constipated, he does bear down, as his stools are hard, he is uncomfortable on the commode at the bedside, Vitals/I&O/Wt Last Vital Signs Temp 98.5 F 08/14/20 08:30 Pulse 71 08/14/20 10:00 Resp 22 H 08/14/20 10:00 BP 106/71 08/14/20 10:00 Pulse Ox 89 L 08/14/20 09:30 08/13/20 08/14/20 08/14/20 22:59 06:59 14:59 Intake Total 240 / 1140 200 / 200 Output Total 575 / 1775 200 / 1975 Balance -335 / -635 -200 / -835 200 / 200 Physical Exam Const: COMMON NORMALS: no acute distress and patient oriented x3 Resp: COMMON NORMALS: normal respiratory effort, No retractions, No use of accessory muscles and clear to auscultation bilaterally AUSCULTATION: clear to auscultation bilaterally Cardio: COMMON NORMALS: regular rate, regular rhythm, S1 normal heart sound present and S2 normal heart sound present RATE: regular rate RHYTHM: regular rhythm HEART SOUNDS: S1 normal heart sound present and S2 normal heart sound present GI: COMMON NORMALS: Normal to inspection, nondistended, normoactive bowel sounds present, Soft to palpation and non-tender PALPATION: Yes Soft to palpation Extremity: COMMON NORMALS: no pedal edema Neuro: COMMON NORMALS: patient oriented x3 Psych: COMMON NORMALS: mental status grossly normal Data : 08/14/20 02:19 08/14/20 02:19 A&P Assessment and plan (1) Acute respiratory failure with hypoxia: Acute Respiratory failure with hypoxia secondary to Covid pneumonia: Currently in the ICU, on high flow oxygen, wean oxygen as tolerated, Precedex drip for anxiety Xray chest : Asymmetric left lower lobe patchy ground-glass opacities Currently on COVID -19 protocol (remdesivir 5-day course, dexamethasone 10-day course) Trend inflammatory markers ( ESR, CRP, D dimer, ferritin ) Zinc 50 mg p.o. daily Ascorbic acid 500 mg q12 h daily vitamin D Ceftriaxone 1 gm q24 h daily Azithromycon 500 mg I.V Daily Albuterol, Advair Budesonide 0.5 mg Inhalation BID Holding Decadron Finished remdesivir course 08/11/2020 pulmonary has been consulted Incentive spirometer and flutter valve Up out of bed Lasix as needed (to maintain fluid neutral state) DVT prophylaxis Lovenox CT angiogram of the chest negative for evidence of pulmonary midline Cardiac echocardiogram EF 66%, no regional wall motion abnormalities For vasovagal response, EKG shows first-degree AV block, sinus bradycardia, moderate intraventricular conduction delay Continue telemetry monitoring, patient was advised to avoid straining due to strong vagal response Full code Lovenox for DVT prophylaxis Plan for today, up into a chair, hold steroids, continue antibiotics, monitor vasovagal response, bowel regimen to avoid straining, transfer to second floor with telemetry Status: Acute (2) COVID-19 determined by clinical diagnostic criteria: Status: Acute (3) Rash: Nonpruritic, macular rash on abdomen, nonblanching, continue to monitor No known penicillin allergy No lip or tongue swelling Status: Acute (4) Vasovagal near syncope: Status: Acute Additional A&P Information Full code Cardiac diet DVT prophylaxis Lovenox Attestations Medical Necessity Statement*: Patient requires hospitalization for acute respiratory failure secondary COVID-19 Coding Level of Care Code Acute Floor Renovator for Allison Huff Diagnoses Acute respiratory failure with hypoxia J96.01 COVID-19 determined by clinical diagnostic criteria U07.1 Rash R21 Vasovagal near syncope R55
--- NOTE | 2020-08-14 12:35 | PC.NURSE ---
Transfer orders received. Nurse transferred patient to [facility] via wheelchair and with assistance from RT. Taken to room 264. Belonings with patient included phone, fermenting cellar dropper, backpack, glasses, and clothes. report given to yogi.
[2020-08-15] VITALS (11 sets, daily range): BP systolic 101–148; BP diastolic 64–85; PULSE 58–75; RESP 14–18; TEMP 36.4–37; O2SAT 92–95
[2020-08-15] MEDS: enoxaparin 40 mg/0.4 mL Syringe SUBCUT ×2 (00:03→23:39)
[2020-08-15 07:12] LABS: Basophils # 0.1 10^3/uL (0.0-0.1); Basophils % 0.7 %; Eosinophils # 0.3 10^3/uL (0.0-0.8); Eosinophils % 4.7 %; Hematocrit 43.6 % (42.0-52.0); Hemoglobin 14.8 g/dL (11.7-16.6); Lymphocytes # 1.2 10^3/uL (0.8-4.8); Lymphocytes % 16.8 %; Mean Corpuscular HGB Conc 33.9 g/dL (30.0-36.0); Mean Corpuscular Hemoglobin 30.7 pg (28.0-34.0); Mean Corpuscular Volume 90.5 fL (80-94); Mean Platelet Volume 9.2 fL (7.4-10.4); Monocytes # 0.6 10^3/uL (0.2-0.9); Neutrophils # 4.63 10^3/uL (1.8-7.7); Neutrophils % 67.5 %; Nucleated Red Blood Cells % 0 %; Platelet Count 361 10^3/cmm (130-400); Red Blood Count 4.82 10^6/uL (4.1-5.3); Red Cell Distribution Width 12.1 % (12.1-15.1); White Blood Count 6.9 10^3/uL (4.0-10.0)
[2020-08-15 07:36] LABS: NT Pro B Type Natriuretic Pept 5 pg/mL (0-125); Procalcitonin 0.03 ng/mL (0-0.5)
[2020-08-15 07:49] LABS: Alanine Aminotransferase 75 U/L (0-41); Albumin Level 3.4 g/dL (3.5-5.2); Alkaline Phosphatase 62 IU/L (40-130); Anion Gap 12.4 (5-19); Aspartate Amino Transferase 26 U/L (0-40); Blood Urea Nitrogen 19 mg/dL (6-20); C Reactive Protein 0.8 mg/L (0.0-4.9); Calcium 8.3 mg/dL (8.5-10.5); Carbon Dioxide 25 mmol/L (22-29); Chloride 101 mmol/L (98-107); Creatine Phosphokinase 60 U/L (39-308); Globulin 2.2 g/dL (1.3-4.6); Glomerular Filtration Rate 115.4 mL/min (90-130); Glucose 92 mg/dL (65-115); Magnesium 2.2 mg/dL (1.7-2.3); Osmolality Calculated 280 mOsm/kg (285-295); Phosphorus 3.8 mg/dL (2.5-4.5); Potassium 4.4 mmol/L (3.5-5.1); Sodium 134 mmol/L (136-145); Total Bilirubin 0.5 mg/dL (0.15-1.2); Total Protein 5.6 g/dL (6.6-8.7)
[2020-08-15] MEDS: ascorbic acid 500 mg Tablet PO ×2 (08:42→18:24)
[2020-08-15] MEDS: ALPRAZolam 0.5 mg Tablet 0.25 MG PO ×3 (08:42→21:04)
[2020-08-15] MEDS: docusate sodium 100 mg Capsule PO ×2 (08:42→18:24)
[2020-08-15] MEDS: zinc gluconate 50 mg Tablet PO (08:42)
[2020-08-15] MEDS: cholecalciferol (vitamin D3) 1,000 unit Tablet 1000 UNIT PO (08:42)
[2020-08-15] MEDS: polyethylene glycol 3350 Pkt 17 gm PO (08:43)
[2020-08-15] MEDS: cefTRIAXone 1,000 MG in sodium chloride 0.9% (plus) 50 ML 100 MG IV (08:43)
--- NOTE | 2020-08-15 12:23 | PM.PN ---
Subjective Subjective: Interval history: Patient was seen this morning, he is on 12 L, he is feeling well, ambulating without significant symptomatology, Vitals/I&O/Wt Last Vital Signs Temp 98.6 F 08/15/20 08:00 Pulse 68 08/15/20 08:03 Resp 18 08/15/20 08:03 BP 126/80 08/15/20 08:00 Pulse Ox 92 08/15/20 08:03 08/14/20 08/15/20 08/15/20 22:59 06:59 14:59 Intake Total 660 / 1400 410 / 410 Output Total 800 / 800 100 / 900 250 / 250 Balance -140 / 600 -100 / 500 160 / 160 Physical Exam Const: COMMON NORMALS: no acute distress and patient oriented x3 Resp: COMMON NORMALS: normal respiratory effort, No retractions, No use of accessory muscles and clear to auscultation bilaterally AUSCULTATION: clear to auscultation bilaterally Cardio: COMMON NORMALS: regular rate, regular rhythm, S1 normal heart sound present and S2 normal heart sound present RATE: regular rate RHYTHM: regular rhythm HEART SOUNDS: S1 normal heart sound present and S2 normal heart sound present GI: COMMON NORMALS: Normal to inspection, nondistended, normoactive bowel sounds present, Soft to palpation and non-tender PALPATION: Yes Soft to palpation Extremity: COMMON NORMALS: no pedal edema Neuro: COMMON NORMALS: patient oriented x3 Psych: COMMON NORMALS: mental status grossly normal Data : 08/15/20 06:24 08/15/20 06:24 A&P Assessment and plan (1) Acute respiratory failure with hypoxia: Acute Respiratory failure with hypoxia secondary to Covid pneumonia: Currently on general medical floors, high flow nasal cannula Xray chest : Asymmetric left lower lobe patchy ground-glass opacities Currently on COVID -19 protocol (for finished remdesivir 5-day course) Trend inflammatory markers ( ESR, CRP, D dimer, ferritin ) Zinc 50 mg p.o. daily Ascorbic acid 500 mg q12 h daily vitamin D Stop Rocephin and azithromycin, transition to doxycycline 100 twice daily Albuterol, Advair Budesonide 0.5 mg Inhalation BID Continue Decadron Finished remdesivir course 08/11/2020 pulmonary has been consulted Incentive spirometer and flutter valve Up out of bed Lasix as needed (to maintain fluid neutral state) DVT prophylaxis Lovenox CT angiogram of the chest negative for evidence of pulmonary midline Cardiac echocardiogram EF 66%, no regional wall motion abnormalities For vasovagal response, EKG shows first-degree AV block, sinus bradycardia, moderate intraventricular conduction delay Continue telemetry monitoring, patient was advised to avoid straining due to strong vagal response Full code Lovenox for DVT prophylaxis Plan for today, up into a chair, resume steroids, de-escalate to doxycycline, monitor vasovagal response, bowel regimen to avoid straining, wean oxygen as needed Status: Acute (2) COVID-19 determined by clinical diagnostic criteria: Status: Acute (3) Rash: Nonpruritic, macular rash on abdomen, nonblanching, continue to monitor No known penicillin allergy No lip or tongue swelling Status: Acute (4) Vasovagal near syncope: Status: Acute Additional A&P Information Full code Cardiac diet DVT prophylaxis Lovenox Attestations Medical Necessity Statement*: Patient requires hospitalization for acute respiratory failure with hypoxia secondary to COVID-19 Coding Level of Care Code Acute Flight Communications Officer for Allison Huff Diagnoses Acute respiratory failure with hypoxia J96.01 COVID-19 determined by clinical diagnostic criteria U07.1 Rash R21 Vasovagal near syncope R55
[2020-08-15] MEDS: doxycycline 100 mg Tablet PO ×2 (12:45→18:24)
[2020-08-16 03:46] VITALS: BP 104/65; PULSE 60; RESP 16; TEMP 36.5; O2SAT 95
[2020-08-16 06:00] VITALS: PULSE 54
[2020-08-16] MEDS: doxycycline 100 mg Tablet PO (06:36)
--- NOTE | 2020-08-16 07:00 | XRR_ITS ---
PROCEDURE INFORMATION: Exam: XR Chest Exam date and time: 08/16/2020 7:00 AM Age: 59 years old Clinical indication: Condition or disease; Other: Follow up covid; Additional info: SOB TECHNIQUE: Imaging protocol: XR of the chest. Views: 1 view. COMPARISON: CR XR chest 1V portable [id number] 08/13/2020 5:35 AM FINDINGS: Tubes, catheters and devices: Numerous monitor lead wires overlie the chest. Lungs: Persistent bilateral pulmonary consolidations greatest on the left. Pleural spaces: Unremarkable. No pleural effusion. No pneumothorax. Heart/Mediastinum: Stable cardiomediastinal silhouette. Bones/joints: Degenerative change of the spine. XR/XR chest 1V portable [id number] IMPRESSION: Similar appearance of bilateral pulmonary consolidations predominantly peripheral and greatest on the left.
[2020-08-16 07:35] LABS: Basophils % 0.7 %; Eosinophils # 0.2 10^3/uL (0.0-0.8); Eosinophils % 4.1 %; Hemoglobin 14.1 g/dL (11.7-16.6); Lymphocytes # 1.3 10^3/uL (0.8-4.8); Lymphocytes % 21.6 %; Mean Corpuscular HGB Conc 33.6 g/dL (30.0-36.0); Mean Corpuscular Hemoglobin 30.9 pg (28.0-34.0); Mean Corpuscular Volume 91.9 fL (80-94); Mean Platelet Volume 8.8 fL (7.4-10.4); Monocytes # 0.6 10^3/uL (0.2-0.9); Monocytes % 10.7 %; Neutrophils # 3.45 10^3/uL (1.8-7.7); Neutrophils % 59.5 %; Nucleated Red Blood Cells % 0 %; Platelet Count 334 10^3/cmm (130-400); Red Blood Count 4.57 10^6/uL (4.1-5.3); Red Cell Distribution Width 12.2 % (12.1-15.1); White Blood Count 5.8 10^3/uL (4.0-10.0)
[2020-08-16 08:00] VITALS: BP 114/77; PULSE 63; RESP 18; TEMP 36.6; O2SAT 93
[2020-08-16 08:01] LABS: NT Pro B Type Natriuretic Pept 5 pg/mL (0-125); Procalcitonin 0.02 ng/mL (0-0.5)
[2020-08-16 08:09] LABS: Slide Review Slide Review Perform
[2020-08-16 08:12] LABS: Alanine Aminotransferase 52 U/L (0-41); Albumin Level 3.1 g/dL (3.5-5.2); Alkaline Phosphatase 51 IU/L (40-130); Anion Gap 13.4 (5-19); Aspartate Amino Transferase 21 U/L (0-40); Blood Urea Nitrogen 16 mg/dL (6-20); C Reactive Protein 0.4 mg/L (0.0-4.9); Calcium 7.9 mg/dL (8.5-10.5); Carbon Dioxide 25 mmol/L (22-29); Chloride 101 mmol/L (98-107); Globulin 2.1 g/dL (1.3-4.6); Glomerular Filtration Rate 98.9 mL/min (90-130); Glucose 91 mg/dL (65-115); Magnesium 2.2 mg/dL (1.7-2.3); Osmolality Calculated 281 mOsm/kg (285-295); Phosphorus 3.2 mg/dL (2.5-4.5); Potassium 4.4 mmol/L (3.5-5.1); Sodium 135 mmol/L (136-145); Total Bilirubin 0.4 mg/dL (0.15-1.2); Total Protein 5.2 g/dL (6.6-8.7)
[2020-08-16] MEDS: ALPRAZolam 0.5 mg Tablet 0.25 MG PO (09:29)
[2020-08-16] MEDS: docusate sodium 100 mg Capsule PO (09:29)
[2020-08-16] MEDS: zinc gluconate 50 mg Tablet PO (09:29)
[2020-08-16] MEDS: ascorbic acid 500 mg Tablet PO (09:29)
[2020-08-16] MEDS: dexamethasone 4 mg/mL INJ 6 MG IVP (09:29)
[2020-08-16 09:51] VITALS: O2SAT 82; O2SAT 91
--- NOTE | 2020-08-16 11:45 | PM.DCS ---
Discharge Providers Date of Admission: 08/07/20 19:30 Date of Discharge: August 16, 2020 Attending Provider at Admission: Emy Long MD Attending Provider at Discharge: Kevin Parr MD Diagnoses at Discharge Discharge Diagnosis (1) Acute respiratory failure with hypoxia: Status: Acute (2) COVID-19 determined by clinical diagnostic criteria: Status: Acute (3) Rash: Status: Acute (4) Vasovagal near syncope: Status: Acute Reason for Visit Reason for Visit: COVID +; RESP DISTRESS Hospital Course Hospital Course This is a 59-year-old male with no significant past medical history who presents to [facility] due to complaints of cough, shortness of breath Patient was admitted to [facility] for acute hypoxic respiratory failure secondary to COVID-19, was treated with oxygen therapy, remdesivir, steroids, zinc, sorbic acid, vitamin D, broad-spectrum antibiotic therapy, aggressive pulmonary toilet and clinically monitored. Patient's respiratory status worsened during his hospitalization, oxygen requirements increased to heated high flow, was moved to the ICU, pulmonary was consulted, received 1 dose of Actemra, and clinically monitored. Patient clinically stabilized over the next few days, oxygen requirements decreased, D escalated out of the ICU to the general medical floors, cultures were unremarkable, clinically did well, ambulating without significant symptomatology, lungs clear to auscultation bilaterally. Was ambulating without significant symptomatology, remained afebrile, normotensive, was weaned down to 4 L nasal cannula. Patient finished his remdesivir course as inpatient. Patient was discharged on a steroid burst, doxycycline, zinc, vitamin C, vitamin D, Advair, albuterol, aggressive pulmonary toilet instructions, to follow-up with primary care provider in 2 weeks. Discharged on 4 liters nasal cannula, follow-up with pulmonary in 1 month. Patient was advised to continue to socially isolate, but at least 21 to 28 days after symptom onset, facemask, hand wash, continue mobility. Patient was advised to talk to her primary care and pulmonary about COVID-19 vaccination in 1 month time. Patient also had vasovagal presyncope episodes during his hospitalization, secondary to anxiety, secondary to bearing down and strong vasovagal response. After a adequate bowel regimen, and instructions not to strain, no repeat episodes of vasovagal presyncope. Patient did have significant anxiety during his hospitalization, his symptoms improved with Xanax, discharged home with a short supply of Xanax to be used as needed for anxiety episodes, do not drive or operate heavy machinery while taking the medication. Follow-up with primary care provider for further refills. In terms of anticoagulation for hypercoagulability prophylaxis for COVID-19 patients, he does not have a history of recent surgery, no history DVT or PE, no history immobility, was quite mobile during his hospitalization. Advised that currently we will not anticoagulate him for hypercoagulability prophylaxis for COVID-19. But he does have a risk of DVTs or PEs, if he were to have calf pain or calf swelling, sudden onset worsening shortness of breath, or hemoptysis to come to emergency room immediately. Physical Exam Const: COMMON NORMALS: no acute distress and patient oriented x3 HENMT: COMMON NORMALS: normocephalic HEAD & SCALP: normocephalic Resp: COMMON NORMALS: normal respiratory effort, No retractions, No use of accessory muscles and clear to auscultation bilaterally AUSCULTATION: clear to auscultation bilaterally Cardio: COMMON NORMALS: regular rate, regular rhythm, S1 normal heart sound present and S2 normal heart sound present RATE: regular rate RHYTHM: regular rhythm HEART SOUNDS: S1 normal heart sound present and S2 normal heart sound present GI: COMMON NORMALS: Normal to inspection, nondistended, normoactive bowel sounds present, Soft to palpation and non-tender PALPATION: Yes Soft to palpation Extremity: COMMON NORMALS: no pedal edema Neuro: COMMON NORMALS: patient oriented x3 Psych: COMMON NORMALS: mental status grossly normal Discharge Data Data Completed and Pending: Completed Studies During Hospitalization Category Date Time Status CT angio chest PE protcl [id number] Rout ine Cat Scan 08/09/20 09:58 Completed XR chest 1V sharon ble [id number] Routine Exams 08/10/20 07:00 Completed XR chest 1V sharon ble [id number] Routine Exams 08/12/20 08:54 Completed XR chest 1V sharon ble [id number] Routine Exams 08/13/20 07:00 Completed XR chest 1V sharon ble [id number] Routine Exams 08/16/20 07:00 Completed XR chest 1V sharon ble [id number] Stat Exams 08/07/20 18:32 Completed CV echo complete* [id number] Routine Ultrasound 08/09/20 09:58 Completed Pending at discharge Category Date Time Status C Reactive Protei n AM LABS Lab 08/17/20 04:00 Ordered C Reactive Protei n AM LABS Lab 08/18/20 04:00 Ordered Complete Blood Co unt w/Auto AM LABS Lab 08/17/20 04:00 Ordered Complete Blood Co unt w/Auto AM LABS Lab 08/18/20 04:00 Ordered Comprehensive Met abolic Panel AM LA BS Lab 08/17/20 04:00 Ordered Comprehensive Met abolic Panel AM LA BS Lab 08/18/20 04:00 Ordered Magnesium AM LABS Lab 08/17/20 04:00 Ordered Magnesium AM LABS Lab 08/18/20 04:00 Ordered NT Pro B Type Tsering riuretic Pept QAM Lab 08/17/20 06:00 Ordered NT Pro B Type Tsering riuretic Pept QAM Lab 08/18/20 06:00 Ordered Phosphorus AM LAB S Lab 08/17/20 04:00 Ordered Phosphorus AM LAB S Lab 08/18/20 04:00 Ordered Procalcitonin AM LABS Lab 08/17/20 04:00 Ordered Procalcitonin AM LABS Lab 08/18/20 04:00 Ordered Labs from last 24 hours 08/16/20 08/16/20 07:20 07:20 WBC 5.8 RBC 4.57 Hgb 14.1 Hct 42.0 MCV 91.9 MCH 30.9 MCHC 33.6 RDW 12.2 Plt Count 334 MPV 8.8 Neut % (Auto) 59.5 Lymph % (Auto) 21.6 [place] % (Auto) 10.7 Eos % (Auto) 4.1 Baso % (Auto) 0.7 Neut # (Auto) 3.45 Lymph # (Auto) 1.3 [place] # (Auto) 0.6 Eos # (Auto) 0.2 Baso # (Auto) 0.0 Nucleated RBC % (a uto) 0 Nucleated RBCs # 0.0 Sodium 135 L Potassium 4.4 Chloride 101 Carbon Dioxide 25 Anion Gap 13.4 BUN 16 Creatinine 0.8 GFR Calculation 98.9 Glucose 91 Calculated Osmolal ity 281 L Calcium 7.9 L Phosphorus 3.2 Magnesium 2.2 Total Bilirubin 0.4 AST 21 ALT 52 H Alkaline Phosphata se 51 C-Reactive Protein 0.4 NT-Pro-B Natriuret Pep 5 Total Protein 5.2 L Albumin 3.1 L Globulin 2.1 Procalcitonin 0.02 Vitals: Last Vital Signs Temp 97.8 F 08/16/20 08:00 Pulse 63 08/16/20 08:00 Resp 18 08/16/20 08:00 BP 114/77 08/16/20 08:00 Pulse Ox 82 L 08/16/20 09:51 Discharge Plan Discharge Patient Disposition: Home Condition: Stable Prescriptions: New alprazolam 0.5 mg Tablet 0.25 mg PO BID PRN (Reason: anxiety) 7 Days Qty: 3.5 RF: 0 albuterol sulfate [Ventolin HFA] 90 mcg/actuation Hfa Aerosol Inhaler 2 puff inhalation Q4H.RESPIRATORY PRN (Reason: Shortness Of Breath) Qty: 8.5 RF: 0 ascorbic acid (vitamin C) [Vitamin C] 500 mg Tablet 500 mg PO BID 30 Days Qty: 60 RF: 0 zinc gluconate 50 mg Tablet 50 mg PO DAILY 30 Days Qty: 30 RF: 0 prednisone 20 mg tablet 20 mg PO BID 5 Days Qty: 10 RF: 0 benzonatate [Tessalon Perles] 100 mg capsule 100 mg PO TID PRN (Reason: cough) 14 Days Qty: 42 RF: 0 fluticasone propion-salmeterol [Advair Diskus] 250-50 mcg/dose Blister With Device 1 ea inhalation BID.RESPIRATORY 30 Days Qty: 60 RF: 0 cholecalciferol (vitamin D3) 25 mcg (1,000 unit) Tablet 1,000 unit PO DAILY 30 Days Qty: 30 RF: 0 polyethylene glycol 3350 17 gram Powder In Packet 17 g PO DAILY PRN (Reason: constipation) 30 Days Qty: 30 RF: 0 doxycycline monohydrate 100 mg Tablet 100 mg PO BID@0700,1900 5 Days Qty: 10 RF: 0 No Action No Known Home Medications RF: 0 Discharge Orders: Discharge Order (Routine); Ordered 08/16/20 Ordered By: Kevin Parr Other Ambulatory Orders: DME: Oxygen (Order) Location: None Selected Ordered By: Kevin Parr Referrals: DatarManuel MD [Physician] - 1 month (PLEASE CALL FOR APPOINTMENT) Discharge Diet: Regular and Cardiac Discharge Activity: Resume usual activity Patient Instructions: Opioid Safety Activity Restrictions/Additional Instructions: -Please continue to socially isolate, cysts face mask, hand wash -Take antibiotics and steroids as prescribed -Follow-up with primary care in 1 week -Follow-up with pulmonary in 1 week -Need to set up an appoint with primary care Discharge Attestations Time Spent in Discharge Care*: greater than 30 min Quality Metrics Clinical Quality Measures During this hospital stay, did patient experience: None Coding Level of Care Code Acute Chg FW DC note Diagnoses Acute respiratory failure with hypoxia J96.01 COVID-19 determined by clinical diagnostic criteria U07.1 Rash R21 Vasovagal near syncope R55
[2020-08-16 12:00] VITALS: BP 102/45; PULSE 66; RESP 18; TEMP 36.5; O2SAT 92
[2020-08-16 14:51] VITALS: BP 102/45; PULSE 66; RESP 18; TEMP 36.5; O2SAT 92
== END 2020-08-16 14:15 | disposition home or self-care (01) | DRG 177 ==
LOC: ER 18:34 → MEDSURG 19:43 → ICU 08-09 13:06 → MEDSURG 08-14 11:42
PROVIDERS: Internal Medicine; Admitting Provider Internal Medicine; Emergency Provider Family Medicine; Visit Provider Family Medicine
DX: U07.1 COVID-19 (principal); J12.82 Pneumonia due to coronavirus disease 2019; J96.01 Acute respiratory failure with hypoxia; J15.9 Unspecified bacterial pneumonia; R21 Rash and other nonspecific skin eruption; F41.9 Anxiety disorder, unspecified; R00.1 Bradycardia, unspecified; K59.00 Constipation, unspecified; R55 Syncope and collapse
CPT/HCPCS: 36415; 36416; 36600; 71045; 71275; 80048; 80053; 82550; 82728; 82803; 82962; 83605; 83615; 83735; 83880; 84100; 84145; 84443; 84484; 85025; 85378; 85384; 85610; 85651; 86140; 93005; 93306; 94640; 94762; 96365; 96372; 99285; J0456; J0696; J1100; J1650; J1940; J2060; J3262; J3535; J7050; J8540; Q9967